=== PATIENT | female | born 1985 | race Caucasian/White ===

== ENCOUNTER 2018-03-05 10:28 | Emergency (ER) | payer OTHER ==
[2018-03-05 10:32] VITALS: BMI 25.9
[2018-03-05 10:33] VITALS: RESP 18; O2SAT 98
[2018-03-05 11:39] LABS: BASO # 0.04 K/mm3 (0.0-2.0); BASO % 0.5 % (0.0-3.0); EOS # 0.4 (0.0-0.7); EOS % 4.7 % (1.5-5.0); GRAN # 4.5 (1.4-6.5); GRAN % 60.3 % (50.0-68.0); HEMOGLOBIN 13.3 g/dL (12.0-16.0); LYMPH % 26.5 % (22.0-35.0); MEAN CELL VOLUME 84.8 fl (80.0-105.0); MEAN CORPUSCULAR HEMOGLOBIN 28.8 pg (25.0-35.0); MEAN CORPUSCULAR HGB CONC 33.9 g/dl (31.0-37.0); MEAN PLATELET VOLUME 9.9 fl (7.0-11.0); MONO # 0.6 (0.1-0.6); RBC 4.62 10^6/uL (3.5-6.1); RED CELL DISTRIBUTION WIDTH 12.7 % (11.5-14.5); WHITE BLOOD COUNT 7.5 10^3/ul (4.5-11.0)
[2018-03-05 11:43] LABS: URINE APPEARANCE CLEAR (CLEAR); URINE BILIRUBIN NEGATIVE (NEGATIVE); URINE BLOOD NEGATIVE (NEGATIVE); URINE COLOR YELLOW (YELLOW); URINE GLUCOSE (UA) NEGATIVE (NEGATIVE); URINE LEUKOCYTE ESTERASE NEGATIVE Leu/uL (NEGATIVE); URINE PROTEIN TRACE mg/dL (<30 mg/dL); URINE UROBILINOGEN 0.2 E.U./dL (<1 E.U./dL)
[2018-03-05 11:49] LABS: ALB/GLOB RATIO 1.2 (1.1-1.8); ALBUMIN 4.2 g/dL (3.0-4.8); CALCIUM 9.4 mg/dL (8.4-10.5); GFR AFRICAN-AMERICAN > 60; GFR NON-AFRICAN AMERICAN > 60
[2018-03-05 11:50] LABS: ALT/SGPT 19 U/L (7-56); AST/SGOT 23 U/L (14-36); BLOOD UREA NITROGEN 13 mg/dL (7-21)
[2018-03-05 12:19] LABS: URINE AMORPHOUS SEDIMENT FEW; URINE BACTERIA MANY (NEG); URINE RBC 0 - 2 /hpf (0-2); URINE WBC 0 - 2 /hpf (0-6)
--- NOTE | 2018-03-05 12:52 | ED PDOC ---
Arrival/HPI - General Chief Complaint: Upper Extremity Problem/Injury Time Seen by Provider: 03/05/18 10:32 Historian: Patient - History of Present Illness Narrative History of Present Illness (Text): 03/05/18 12:48 32 yr old female w/ hx of masectomy 2/2 breast CA currently on tamoxifen p/w R shoulder pain after lifting box 3d prior. Pt notes she lifted a heavy box while at work and then noted R sided shoulder pain. She notes he pain feels like a muscular strain. She denies any chest pain or sob. Pain does not go down her arm. She notes she has had this pain previously when she strained her muscle. She denies any popping of the joint and is able to move her arms without issues. She also notes abdominal pain, suprapubic, without radiation, without any dysuria, urgency or freq. LMP was beggining of this month, Feb 14, normal. She notes her pain feels like her menstrual cramps. No RLQ or LLQ pain. No N/V. No vaginal d/c or rashes. No hx of STDS. No fever, chills or night sweats No trauma No CP or SOB No headache, nausea or vomiting No back pain No other complaints Past Medical History - Provider Review Nursing Documentation Reviewed: Yes - Travel History Have you recently traveled outside [place] w/in the past 3 mons?: No - Infectious Disease Hx of Infectious Diseases: None - Hematological/Oncological Hx Cancer: Yes (breast ca - on tamoxifen) - Psychiatric Hx Substance Use: No - Surgical History Other/Comment: R mastectomy - Anesthesia Hx Anesthesia Reactions: No Hx Malignant Hyperthermia: No Family/Social History - Physician Review Nursing Documentation Reviewed: Yes Family/Social History: Unknown Family HX Smoking Status: Never Smoked Hx Alcohol Use: No Hx Substance Use: No Allergies/Home Meds Allergies/Adverse Reactions: Allergies No Known Allergies Allergy (Verified 03/05/18 10:32) Home Medications: Home Meds Medication Instructions Recorded Confirmed Tamoxifen Citrate [Tamoxifen 1 tab PO DAILY 03/05/18 03/05/18 Citrate] Review of Systems - Review of Systems Constitutional: Normal Eyes: Normal ENT: Normal Respiratory: Normal Cardiovascular: Normal Gastrointestinal: Abdominal Pain Genitourinary Female: Normal Musculoskeletal: Other (r shoulder pain) Skin: Normal Neurological: Normal Physical Exam Vital Signs Reviewed: Yes Vital Signs Temp Pulse Resp BP Pulse Ox 03/05/18 10:32 98.9 F 88 18 127/83 98 Temperature: Afebrile Blood Pressure: Normal Pulse: Regular Respiratory Rate: Normal Appearance: Positive for: Well-Appearing Pain Distress: None Mental Status: Positive for: Alert and Oriented X 3 - Systems Exam Head: Present: Atraumatic, Normocephalic Pupils: Present: PERRL Extroacular Muscles: Present: EOMI Conjunctiva: Present: Normal Mouth: Present: Moist Mucous Membranes Neck: Present: Normal Range of Motion Respiratory/Chest: Present: Clear to Auscultation, Good Air Exchange. No: Respiratory Distress, Accessory Muscle Use Cardiovascular: Present: Regular Rate and Rhythm, Normal S1, S2. No: Murmurs Abdomen: Present: Tenderness (suprapubic. ). No: Distention, Peritoneal Signs, Rebound, Guarding, McBurney's Point Tender, Rovsing's Sign Present, Hernias Back: Present: Normal Inspection Upper Extremity: Present: Normal Inspection, Normal ROM, NORMAL PULSES, Other ( R AC joint TTP. Non erythematous. No swelling. No warmth. ). No: Cyanosis, Edema Lower Extremity: Present: Normal Inspection. No: Edema Neurological: Present: GCS=15, CN II-XII Intact, Speech Normal Skin: Present: Warm, Dry, Normal Color. No: Rashes Psychiatric: Present: Alert, Oriented x 3, Normal Insight, Normal Concentration Medical Decision Making ED Course and Treatment: 03/05/18 12:53 32 yr old female w/ hx of masectomy 2/2 breast ca, currently on tamoxifren p/w R should pain s/p lifting box. Likely MSK given no ACS RF. No DIXON or SOB or tachy. Pain only occured after lifting object. Abd pain, suprapubic, feels like cramps, u/l appendicitis given x3d, non periumbilical, non rlq. will seek labs and TVUS. No other complaints 03/05/2018 13:27 Transvaginal Ultrasound IMPRESSION: Unremarkable pelvic ultrasound. Dictator: Grace Hanna MD 03/05/2018 13:36 Right Shoulder X-ray IMPRESSION: Normal examination. Dictator: Grace aHnna MD 03/05/18 13:42 labs, imaging unremarkable. Pain improved. N/V intact in all extremities. abdominal pain resolved, clear for d/c home. Pt notes she has tylenol at home. - Lab Interpretations Lab Results: 03/05/18 11:00 03/05/18 11:00 Lab Results 03/05/18 11:00: Sodium 141, Potassium 4.9, Chloride 107, Carbon Dioxide 24, Anion Gap 15, BUN 13, Creatinine 0.6 L, Est GFR ( Amer) > 60, Est GFR ( Non-Af Amer) > 60, Random Glucose 86, Calcium 9.4, Total Bilirubin 0.9, AST 23, ALT 19, Alkaline Phosphatase 59, Total Protein 7.7, Albumin 4.2, Globulin 3.4, Albumin/Globulin Ratio 1.2 03/05/18 11:00: Urine Color Yellow, Urine Appearance Clear, Urine pH 7.0, Ur Specific [place] 1.015, Urine Protein Trace H, Urine Glucose (UA) Negative, Urine Ketones Negative, Urine Blood Negative, Urine Nitrate Negative, Urine Bilirubin Negative, Urine Urobilinogen 0.2, Ur Leukocyte Esterase Negative, Urine RBC 0 - 2, Urine WBC 0 - 2, Ur Epithelial Cells 6 - 8, Amorphous Sediment Few, Urine Bacteria Many, Urine Other Uyeast 03/05/18 11:00: WBC 7.5, RBC 4.62, Hgb 13.3, Hct 39.2, MCV 84.8, MCH 28.8, MCHC 33.9, RDW 12.7, Plt Count 242, MPV 9.9, Gran % 60.3, Lymph % (Auto) 26.5, [place] % (Auto) 8.0 H, Eos % (Auto) 4.7, Baso % (Auto) 0.5, Gran # 4.50, Lymph # (Auto ) 2.0, Terry # (Auto) 0.6, Eos # (Auto) 0.4, Baso # (Auto) 0.04 - RAD Interpretation Radiology Orders: 03/05/18 11:24 SHOULDER RIGHT [RAD] Stat TRANSVAGINAL [US] Stat - Medication Orders Current Medication Orders: Discontinued Medications Acetaminophen (Tylenol 325mg Tab) 650 mg PO STAT STA Stop: 03/05/18 11:25 Last Admin: 03/05/18 11:45 Dose: 650 mg MAR Pain/Vitals Document 03/05/18 11:45 [email or web address] (Rec: 03/05/18 11:45 [email or web address] [id number]) Pain Reassessment Is This A Pain ReAssessment? No Sleep Is patient sleeping during reassessment? No Presence of Pain Presence of Pain Yes Pain Scale Used Pain Scale Used Numeric Location Left, Right or Bilateral Right Pain Location Body Site Arm Description Constant Intensity 5 Scale Used Numeric Pain Behavior Facial Grimacing Aggravating Factors Changing Position Alleviating Factors Medication Disposition/Present on Arrival - Present on Arrival Any Indicators Present on Arrival: No History of DVT/PE: No History of Uncontrolled Diabetes: No Urinary Catheter: No History of Decub. Ulcer: No History Surgical Site Infection Following: None - Disposition Have Diagnosis and Disposition been Completed?: Yes Diagnosis: Shoulder pain, right, Abdominal pain Disposition: HOME/ ROUTINE Disposition Time: 13:30 Condition: GOOD Discharge Instructions (ExitCare): Contusion (DC), Shoulder Pain (DC), Stomach Ache and Stomach Upset Print Language: [place] Additional Instructions: Take tylenol as prescribed on the bottle for the shoulder pain DURGA SILVA, thank you for letting us take care of you today. Your provider was Remington Byers and you were treated for SHOULDER PAIN. The emergency medical care you received today was directed at your acute symptoms. If you were prescribed any medication, please fill it and take as directed. It may take several days for your symptoms to resolve. Return to the Emergency Department if your symptoms worsen, do not improve, or if you have any other problems. Please contact your doctor or call one of the physicians/clinics you have been referred to that are listed on the Patient Visit Information form that is included in your discharge packet. Bring any paperwork you were given at discharge with you along with any medications you are taking to your follow up visit. Our treatment cannot replace ongoing medical care by a primary care provider outside of the emergency department. Thank you for allowing the [facility] team to be part of your care today. If you had an X-Ray or CT scan: A Radiologist will review the ED reading if any change in treatment is needed we will contact you. If you had a blood, urine, or wound culture: It will take several days for the results, if any change in treatment is needed we will contact you. If you had an STI test: It will take 48 hours for the results. Please call after 1 week if you have not heard back. Referrals: Marquita Larkin MD [Medical Doctor] - Follow up with primary Forms: [email or web address] (Yi)
--- NOTE | 2018-03-05 13:30 | US ---
Date of service: 03/05/2018 HISTORY: Suprapubic pain COMPARISON: None available. TECHNIQUE: Transvaginal pelvic ultrasound was performed. FINDINGS: UTERUS: Measures 8.1 x 4.8 x 6.3 cm. Anteverted, normal in size and appearance. No fibroid or other mass lesion seen. ENDOMETRIUM: Measures 10 mm in diameter. Normal in appearance. CERVIX: No cervical abnormality identified. RIGHT OVARY: Measures 3.0 x 3.6 x 2.0 cm. No solid mass. Normal flow. There is a 1.4 x 1.3 cm complicated cyst. LEFT OVARY: Measures 3.8 x 1.8 x 3.4 cm. No solid mass. Normal flow. FREE FLUID: No significant free fluid noted. OTHER FINDINGS: None. IMPRESSION: Unremarkable pelvic ultrasound.
--- NOTE | 2018-03-05 13:39 | RAD ---
Date of service: 03/05/2018 PROCEDURE: Radiographs of the Right Shoulder HISTORY: R shoulder pain COMPARISON: No prior. FINDINGS: BONES: Bone alignment and mineralization are normal. There is no acute displaced fracture or bone destruction. JOINTS: Normal. Glenohumeral and acromioclavicular joints preserved. No osteoarthritis. SOFT TISSUES: Normal. OTHER FINDINGS: None. IMPRESSION: Normal examination.
[2018-03-05 13:59] VITALS: BP 122/80; PULSE 87; TEMP 98
== END 2018-03-05 14:04 | disposition home or self-care (01) ==
LOC: ED 10:28
DX: M25.511 Pain in right shoulder (principal); R10.9 Unspecified abdominal pain; Z85.3 Personal history of malignant neoplasm of breast

== ENCOUNTER 2018-03-18 14:46 | Emergency (ER) | payer OTHER ==
[2018-03-18 14:47] VITALS: BMI 25.9
[2018-03-18] MEDS ORDERED: Sodium Chloride 0.9% 1,000 ML IV STA (15:29)
--- NOTE | 2018-03-18 15:33 | ED PDOC ---
Arrival/HPI - General Chief Complaint: Flu-like Symptoms Time Seen by Provider: 03/18/18 15:17 Historian: Patient - History of Present Illness Narrative History of Present Illness (Text): 03/18/18 15:29 A 32 year old female, with no significant past medical history, presents to the emergency department complaining of fever starting yesterday. Patient reports also experiencing body aches and muscle pain, mainly in the lower extremities bilaterally. Patient denies cough, shortness of breath, chest pain, nausea, vomiting, diarrhea, abdominal pain, rash, any urinary symptoms, or any other complaints at this time. Also, patient denies any recent sick contacts. Admits to traveling in January to [facility], however stated that upon returning to the [facility] did not develop any symptoms at the time. No PMD Past Medical History - Provider Review Nursing Documentation Reviewed: Yes - Infectious Disease Hx of Infectious Diseases: None - Cardiac Hx Cardiac Disorders: No - Pulmonary Hx Respiratory Disorders: No - Neurological Hx Neurological Disorder: No - HEENT Hx HEENT Disorder: No - Renal Hx Renal Disorder: No - Endocrine/Metabolic Hx Endocrine Disorders: No - Hematological/Oncological Hx Blood Disorders: Yes Hx Cancer: Yes (breast ca - on tamoxifen) - Integumentary Hx Dermatological Disorder: No - Musculoskeletal/Rheumatological Hx Musculoskeletal Disorders: No - Gastrointestinal Hx Gastrointestinal Disorders: No - Genitourinary/Gynecological Hx Genitourinary Disorders: No - Psychiatric Hx Psychophysiologic Disorder: No Hx Substance Use: No - Surgical History Hx Mastectomy: Yes (right breast 2010) - Anesthesia Hx Anesthesia: Yes Hx Anesthesia Reactions: No Hx Malignant Hyperthermia: No Family/Social History - Physician Review Nursing Documentation Reviewed: Yes Family/Social History: No Known Family HX Smoking Status: Never Smoked Hx Alcohol Use: No Hx Substance Use: No Allergies/Home Meds Allergies/Adverse Reactions: Allergies No Known Allergies Allergy (Verified 03/05/18 10:32) Home Medications: Home Meds Medication Instructions Recorded Confirmed Tamoxifen Citrate [Tamoxifen 1 tab PO DAILY 03/05/18 03/05/18 Citrate] Review of Systems - Physician Review All systems were reviewed & negative as marked: Yes - Review of Systems Constitutional: Fatigue, Fevers ENT: absent: Sore Throat, Rhinorrhea, Sinus Congestion Respiratory: absent: SOB, Cough Cardiovascular: absent: Chest Pain, Palpitations, Edema Gastrointestinal: absent: Abdominal Pain, Diarrhea, Nausea, Vomiting Genitourinary Female: absent: Dysuria, Frequency, Hematuria Musculoskeletal: Arthralgias, Myalgias. absent: Back Pain, Neck Pain, Joint Swelling Skin: absent: Rash, Pruritis, Skin Lesions Neurological: absent: Headache, Dizziness Physical Exam Vital Signs Temp Pulse Resp BP Pulse Ox 03/18/18 18:36 99.0 F 108 H 18 115/73 100 03/18/18 17:03 101.1 F H 110 H 18 118/71 100 03/18/18 15:02 101.8 F H 117 H 18 104/70 98 Temperature: Febrile Blood Pressure: Normal Pulse: Tachycardic Respiratory Rate: Normal Appearance: Positive for: Non-Toxic, Comfortable Pain Distress: Mild Mental Status: Positive for: Alert and Oriented X 3 - Systems Exam Head: Present: Atraumatic, Normocephalic Pupils: Present: PERRL Extroacular Muscles: Present: EOMI Conjunctiva: Present: Normal. No: Injected, Icteric Ears: Present: Normal, NORMAL TM, Normal Canal. No: Erythema, TM Bulging, Fluid Mouth: Present: Dry Pharnyx: Present: Normal. No: ERYTHEMA, EXUDATE, TONSILS ENLARGED, Uvular Deviation, Muffled/Hoarse Voice, Strider Neck: Present: Normal Range of Motion. No: Meningeal Signs, MIDLINE TENDERNESS , Lymphadenopathy Respiratory/Chest: Present: Clear to Auscultation, Good Air Exchange. No: Respiratory Distress, Accessory Muscle Use, Wheezes, Rales, Rhonchi Cardiovascular: Present: Regular Rate and Rhythm, Normal S1, S2. No: Murmurs Abdomen: No: Tenderness, Distention, Peritoneal Signs, Rebound, Guarding Back: Present: Normal Inspection, CVA Tenderness. No: Midline Tenderness Upper Extremity: Present: Normal Inspection, Normal ROM, NORMAL PULSES, Neurovascularly Intact, Capillary Refill < 2s. No: Cyanosis, Edema, Tenderness , Swelling, Erythema, Temperature Abnormalties Lower Extremity: Present: Normal Inspection, NORMAL PULSES, Normal ROM, Neurovascularly Intact, Capillary Refill < 2 s. No: Edema, Tenderness, Swelling , Erythema, Temperature Abnormalties Neurological: Present: GCS=15, CN II-XII Intact, Speech Normal, Motor Func Grossly Intact, Normal Sensory Function Skin: Present: Warm, Dry, Normal Color. No: Rashes Psychiatric: Present: Alert, Oriented x 3, Normal Insight, Normal Concentration Medical Decision Making ED Course and Treatment: 03/18/18 15:32 Plan : - IV - NS bolus IV - tylenol po - toradol IV - CXR - Ua - Ucx - Blood cx Labs : wbc 17, UA +evidence of UTI, CMP wnl otherwise, lactate nl. CXR : NAD, as read by SHANA Rocephin 1 g IV ordered. On reevaluation, patient reports improvement of symptoms, denies any headache, CP, SOB, abdominal pain or nausea. On exam, patient remains awake alert and oriented 3 in no acute distress. Abdomen soft and nontender, repeat neuro exam shows no focal findings. Based on history, exam and diagnostic results plan will be for further inpatient observation. Patient refuses further care, evaluation or treatment in the hospital. Patient informed of the reasons for the following and planned treatment, which patient understands, however still refuses. Patient informed of the risk and benefits of treatment. Informed that the risk could include worsening of current conditions, undiagnosed conditions, disability or even . Patient understands the following risk and the benefits of treatment. Patient has the capacity to make decisions and still refuses treatment by RN, SHANA and ER MD. Patient encouraged to return to the ER at any time and to follow up with pmd. - Lab Interpretations Lab Results: 03/18/18 16:00 03/18/18 16:00 Lab Results 03/18/18 16:00: PT 15.0 H, INR 1.31, APTT 26.5 03/18/18 16:00: pO2 30, VBG pH 7.40, VBG pCO2 46.0, VBG HCO3 28.5 H, VBG Total CO2 29.9 H, VBG O2 Sat (Calc) 60.3, VBG Base Excess 3.0 H, VBG Potassium 3.5 L, Sodium 136.0, Chloride 102.0, Glucose 93, Lactate 0.8, FiO2 21.0, Venous Blood Potassium 3.5 L 03/18/18 16:00: Sodium 140, Chloride 102, Potassium 3.5 L, Carbon Dioxide 25, Anion Gap 17, BUN 11, Creatinine 0.6 L, Est GFR ( Amer) > 60, Est GFR ( Non-Af Amer) > 60, Random Glucose 95, Calcium 9.4, Total Bilirubin 1.9 H, AST 17 , ALT 17, Alkaline Phosphatase 75, Total Creatine Kinase 54, Total Protein 7.9, Albumin 4.3, Globulin 3.5, Albumin/Globulin Ratio 1.2 03/18/18 16:00: WBC 17.7 H D, RBC 4.39, Hgb 12.7, Hct 36.7, MCV 83.6, MCH 28.9, MCHC 34.6, RDW 12.4, Plt Count 193, MPV 10.0, Gran % 83.9 H, Lymph % (Auto) 7.2 L, [place] % (Auto) 8.3 H, Eos % (Auto) 0.4 L, Baso % (Auto) 0.2, Gran # 14.88 H, Lymph # (Auto) 1.3, [place] # (Auto) 1.5 H, Eos # (Auto) 0.1, Baso # (Auto) 0.03 03/18/18 15:36: Urine Color Dark yellow, Urine Appearance Sl cloudy, Urine pH 6.0, Ur Specific [place] 1.025, Urine Protein Trace H, Urine Glucose (UA) Negative, Urine Ketones 15 H, Urine Blood Moderate H, Urine Nitrate Positive H, Urine Bilirubin Negative, Urine Urobilinogen 1.0 H, Ur Leukocyte Esterase Negative, Urine RBC 0 - 2, Urine WBC 1 - 3, Ur Epithelial Cells 10 - 12, Urine Bacteria Large - RAD Interpretation Radiology Orders: 03/18/18 15:29 CHEST TWO VIEWS (PA/LAT) [RAD] Stat - Medication Orders Current Medication Orders: Discontinued Medications Acetaminophen (Tylenol 325mg Tab) 975 mg PO STAT STA Stop: 03/18/18 15:18 Last Admin: 03/18/18 16:15 Dose: 975 mg Sodium Chloride (Sodium Chloride 0.9%) 1,000 mls @ 1,000 mls/hr IV .Q1H STA Stop: 03/18/18 16:28 Last Admin: 03/18/18 16:14 Dose: 1,000 mls/hr eMAR Start Stop Document 03/18/18 16:14 OCS (Rec: 03/18/18 16:15 OCS [id number]) Intravenous Solution Start Date 03/18/18 Start Time 16:14 End Date 03/18/18 End time 17:14 Total Infusion Time 60 Ceftriaxone Sodium (Rocephin 1 Gram Ivpb) 1 gm in 100 mls @ 200 mls/hr IVPB STAT STA PRN Reason: Protocol Stop: 03/18/18 20:10 Ketorolac Tromethamine (Toradol) 15 mg IVP STAT STA Stop: 03/18/18 15:30 Last Admin: 03/18/18 16:15 Dose: 15 mg MAR Pain Assessment Document 03/18/18 16:15 OCS (Rec: 03/18/18 16:16 OCS [id number]) Pain Reassessment Is this a pain reassessment? No Sleep Is patient sleeping during reassessment? No Presence of Pain Presence of Pain Yes Pain Scale Used Pain Scale Used Numeric Location Pain Location Body Site Generalized Description Description Constant Intensity of Pain at present 9 Pain Behavior Moaning Irritability Facial Grimacing Aggravating Factors ADL's IVP Administration Document 03/18/18 16:15 OCS (Rec: 03/18/18 16:16 OCS [id number]) Charges for Administration # of IVP Administrations 1 Ketorolac Tromethamine (Toradol) 15 mg IVP STAT STA Stop: 03/18/18 17:53 Last Admin: 03/18/18 18:06 Dose: 15 mg MAR Pain Assessment Document 03/18/18 18:06 OCS (Rec: 03/18/18 18:08 OCS [id number]) Pain Reassessment Is this a pain reassessment? No Sleep Is patient sleeping during reassessment? No Pain Scale Used Pain Scale Used Numeric Location Pain Location Body Site Generalized Description Description Constant Aggravating Factors ADL's IVP Administration Document 03/18/18 18:06 OCS (Rec: 03/18/18 18:08 OCS [id number]) Charges for Administration # of IVP Administrations 1 Potassium Chloride (Potassium Chloride Oral Soln) 20 meq PO STAT STA Stop: 03/18/18 16:57 Last Admin: 03/18/18 17:19 Dose: 20 meq - PA / INFORMATION BROKER / Resident Statement MD/DO has reviewed & agrees with the documentation as recorded. - Scribe Statement The provider has reviewed the documentation as recorded by the Cathieibrenata [place] Provider Scribe Provider Scribe Attestation: All medical record entries made by the Scribe were at my direction and personally dictated by me. I have reviewed the chart and agree that the record accurately reflects my personal performance of the history, physical exam, medical decision making, and the department course for this patient. I have also personally directed, reviewed, and agree with the discharge instructions and disposition. Disposition/Present on Arrival - Present on Arrival Any Indicators Present on Arrival: No History of DVT/PE: No History of Uncontrolled Diabetes: No Urinary Catheter: No History of Decub. Ulcer: No History Surgical Site Infection Following: None - Disposition Have Diagnosis and Disposition been Completed?: Yes Diagnosis: Fever, Pyelonephritis Disposition: AGAINST MEDICAL ADVICE Disposition Time: 20:15 Patient Plan: Other (Patient wishes to leave AMA, is refusing further observation in the hospital) Patient Problems: Current Active Problems Problem Status Onset Fever Acute Pyelonephritis Acute Condition: UNKNOWN Discharge Instructions (ExitCare): Kidney Infection, Leaving Against Medical Advice Print Language: ROMANIAN Additional Instructions: Thank you for letting us take care of you today. Your choosing to leave AGAINST MEDICAL ADVICE. You were treated for fever, pyelonephritis. The emergency medical care you received today was directed at your acute symptoms. If you were prescribed any medication, please fill it and take as directed. It may take several days for your symptoms to resolve. Return to the Emergency Department if your symptoms worsen, do not improve, or if you have any other problems. Please contact the clinic in 2 days for re-evaluation and follow up. Bring any paperwork you were given at discharge with you along with any medications you are taking to your follow up visit. Our treatment cannot replace ongoing medical care by a primary care provider (PCP) outside of the emergency department. Thank you for allowing the [facility] team to be part of your care today. If you had an X-Ray : A Radiologist will review the ED reading if any change in treatment is needed we will contact you. If you had a blood, urine culture: It will take several days for the results, if any change in treatment is needed we will contact you. Prescriptions: Cefpodoxime [Vantin] 200 mg PO BID #20 tab Ibuprofen [Motrin Tab] 600 mg PO QID PRN #20 tab PRN Reason: Fever >100.4 F Referrals: [facility] at [facility] [place] [Outside] - Follow up with primary Forms: [employer] (Paraguayan), WORK NOTE
[2018-03-18 16:34] LABS: BASO # 0.03 K/mm3 (0.0-2.0); BASO % 0.2 % (0.0-3.0); EOS # 0.1 (0.0-0.7); EOS % 0.4 % (1.5-5.0); GRAN # 14.88 (1.4-6.5); GRAN % 83.9 % (50.0-68.0); HEMOGLOBIN 12.7 g/dL (12.0-16.0); LYMPH # 1.3 (1.2-3.4); LYMPH % 7.2 % (22.0-35.0); MEAN CELL VOLUME 83.6 fl (80.0-105.0); MEAN CORPUSCULAR HEMOGLOBIN 28.9 pg (25.0-35.0); MEAN CORPUSCULAR HGB CONC 34.6 g/dl (31.0-37.0); MONO # 1.5 (0.1-0.6); MONO % 8.3 % (1.0-6.0); RBC 4.39 10^6/uL (3.5-6.1); RED CELL DISTRIBUTION WIDTH 12.4 % (11.5-14.5); WHITE BLOOD COUNT 17.7 10^3/ul (4.5-11.0)
[2018-03-18 16:40] LABS: VENOUS BLOOD GAS PO2 30 mm/Hg (30-55)
[2018-03-18 16:42] LABS: INR 1.31; PARTIAL THROMBOPLASTIN TIME 26.5 Seconds (25.1-36.5)
[2018-03-18 16:49] LABS: ALB/GLOB RATIO 1.2 (1.1-1.8); ALBUMIN 4.3 g/dL (3.0-4.8); ALT/SGPT 17 U/L (7-56); AST/SGOT 17 U/L (14-36); BLOOD UREA NITROGEN 11 mg/dL (7-21); CALCIUM 9.4 mg/dL (8.4-10.5); GFR NON-AFRICAN AMERICAN > 60
[2018-03-18] MEDS ORDERED: Potassium Chloride 20 mEq/15 ml LIQ UD PO STA (16:56)
--- NOTE | 2018-03-18 17:53 | RAD ---
Date of service: 03/18/2018 HISTORY: fever COMPARISON: No prior. TECHNIQUE: Chest PA and lateral FINDINGS: LUNGS: No active pulmonary disease. PLEURA: No significant pleural effusion identified. No pneumothorax apparent. CARDIOVASCULAR: Normal. OSSEOUS STRUCTURES: No significant abnormalities. VISUALIZED UPPER ABDOMEN: Normal. OTHER FINDINGS: None. IMPRESSION: No radiographic evidence of pneumonia.
[2018-03-18 18:36] VITALS: TEMP 99
[2018-03-18 18:59] LABS: URINE BILIRUBIN NEGATIVE (NEGATIVE); URINE BLOOD MODERATE (NEGATIVE); URINE GLUCOSE (UA) NEGATIVE (NEGATIVE); URINE LEUKOCYTE ESTERASE NEGATIVE Leu/uL (NEGATIVE); URINE PROTEIN TRACE mg/dL (<30 mg/dL)
[2018-03-18 19:00] LABS: URINE APPEARANCE SL CLOUDY (CLEAR); URINE COLOR DARK YELLOW (YELLOW)
[2018-03-18 19:05] LABS: URINE BACTERIA LARGE (NEG); URINE RBC 0 - 2 /hpf (0-2)
[2018-03-18] MEDS ORDERED: cefTRIAXone 1 gm 1 GM/100 ML BAG IVPB STA (19:41)
[2018-03-18 20:47] VITALS: BP 120/69; PULSE 95; RESP 19; O2SAT 99
== END 2018-03-18 20:44 | disposition left against medical advice (07) ==
LOC: ED 14:46
DX: N12 Tubulo-interstitial nephritis, not specified as acute or chronic (principal); R50.9 Fever, unspecified; Z85.3 Personal history of malignant neoplasm of breast
CPT/HCPCS: 71046; 80053; 81001; 82550; 82803; 85025; 85610; 85730; 87040; 87086; 96361; 96365; 96375; 96376; 99284; J0696; J1885; J7030

== ENCOUNTER 2018-07-16 13:48 | Inpatient (IN) | payer OTHER ==
[2018-07-16 13:50] VITALS: BMI 25.0
[2018-07-16] MEDS ORDERED: Sodium Chloride 0.9% 1,000 ML IV STA (14:21)
[2018-07-16 14:52] LABS: URINE BILIRUBIN NEGATIVE (NEGATIVE); URINE BLOOD MODERATE (NEGATIVE); URINE GLUCOSE (UA) NEGATIVE (NEGATIVE); URINE LEUKOCYTE ESTERASE SMALL Leu/uL (NEGATIVE); URINE PROTEIN 30 mg/dL (<30 mg/dL); URINE UROBILINOGEN 0.2 E.U./dL (<1 E.U./dL)
[2018-07-16 14:55] LABS: URINE APPEARANCE CLOUDY (CLEAR); URINE COLOR YELLOW (YELLOW)
[2018-07-16 14:58] LABS: URINE BACTERIA MANY /hpf
[2018-07-16 15:30] LABS: BASO # 0.03 K/mm3 (0.0-2.0); BASO % 0.2 % (0.0-3.0); EOS # 0.1 (0.0-0.7); EOS % 0.4 % (1.5-5.0); GRAN # 10.59 (1.4-6.5); GRAN % 75.3 % (50.0-68.0); LYMPH # 1.8 (1.2-3.4); MEAN CELL VOLUME 84.8 fl (80.0-105.0); MEAN CORPUSCULAR HGB CONC 34.2 g/dl (31.0-37.0); MEAN PLATELET VOLUME 9.8 fl (7.0-11.0); MONO # 1.6 (0.1-0.6); MONO % 11.1 % (1.0-6.0); RBC 4.48 10^6/uL (3.5-6.1); RED CELL DISTRIBUTION WIDTH 12.7 % (11.5-14.5); WHITE BLOOD COUNT 14.1 10^3/uL (4.5-11.0)
[2018-07-16 15:49] LABS: ALB/GLOB RATIO 1.2 (1.1-1.8); ALBUMIN 4.5 g/dL (3.0-4.8); ALT/SGPT 13 U/L (7-56); AST/SGOT 18 U/L (14-36); BLOOD UREA NITROGEN 7 mg/dL (7-21); CALCIUM 9.4 mg/dL (8.4-10.5); GFR NON-AFRICAN AMERICAN > 60
[2018-07-16 15:52] LABS: INR 1.26; PARTIAL THROMBOPLASTIN TIME 23.7 Seconds (25.1-36.5); PROTHROMBIN TIME 14.4 SECONDS (9.4-12.5)
--- NOTE | 2018-07-16 16:20 | US ---
Date of service: 07/16/2018 PROCEDURE: OB Pelvic Ultrasound HISTORY: abdominal pain LMP: 06/16/2018 COMPARISON: None available. FINDINGS: UTERUS: Uterus measures 9.0 x 6.2 x 6.6 cm. Normal in size and appearance. 5 mm gestational sac seen within the endometrium with yolk sac also identified. Dates are out of range. CERVIX: Measures 3.5 cm. Long and closed. No cervical abnormality seen. RIGHT OVARY: Measures 3.1 x 2.6 x 3.5 cm. Dominant follicle measuring 1.7 x 1.6 x 1.7 cm. No mass lesion. Normal flow. LEFT OVARY: Measures 2.6 x 1.5 x 2.7 cm. No solid mass. Normal flow. FREE FLUID: None. OTHER FINDINGS: None. IMPRESSION: 5 mm gestational sac within the uterus with yolk sac identified. Measurements are currently out of range. Findings may represent early normal/abnormal . Close clinical follow-up with serial pelvic sonography and serum beta HCG levels is recommended.
--- NOTE | 2018-07-16 16:25 | US ---
Date of service: 07/16/2018 PROCEDURE: Ultrasound of the Kidneys HISTORY: left flank pain COMPARISON: None available. TECHNIQUE: Sonogram of the kidneys. FINDINGS: RIGHT KIDNEY: Measures: 12.8 x 6.1 x 6.3 cm. Normal in size, contour and echogenicity. No stone, solid mass lesion or hydronephrosis visualized. LEFT KIDNEY: Measures: 11.6 x 5.7 x 7.0 cm. Normal in size, contour and echogenicity. No stone, solid mass lesion or hydronephrosis visualized. OTHER FINDINGS: None. IMPRESSION: Unremarkable renal sonogram.
[2018-07-16] MEDS ORDERED: cefTRIAXone 1 gm 1 GM/100 ML BAG IVPB STA (16:47)
--- NOTE | 2018-07-16 16:55 | ED PDOC ---
Arrival/HPI - General Chief Complaint: Abdominal Pain Time Seen by Provider: 07/16/18 13:56 Historian: Patient - History of Present Illness Narrative History of Present Illness (Text): 07/16/18 16:49 32yo female with no past medical history who present with complaint of abdominal pain, left flank pain, dysuria, nausea, fever, bodyache, headache x 2days. States she did not take any medication for her symptoms. Denies hematuria , vaginal bleeding, vomiting, diarrhea, back pain, sick contact, travel, any other complaint. Past Medical History - Provider Review Nursing Documentation Reviewed: Yes - Infectious Disease Hx of Infectious Diseases: None - Cardiac Hx Cardiac Disorders: No - Pulmonary Hx Respiratory Disorders: No - Neurological Hx Neurological Disorder: No - HEENT Hx HEENT Disorder: No - Renal Hx Renal Disorder: No - Endocrine/Metabolic Hx Endocrine Disorders: No - Hematological/Oncological Hx Blood Disorders: Yes Hx Cancer: Yes (breast ca - on tamoxifen) - Integumentary Hx Dermatological Disorder: No - Musculoskeletal/Rheumatological Hx Musculoskeletal Disorders: No - Gastrointestinal Hx Gastrointestinal Disorders: No - Genitourinary/Gynecological Hx Genitourinary Disorders: No - Psychiatric Hx Psychophysiologic Disorder: No Hx Substance Use: No - Surgical History Hx Mastectomy: Yes (right breast 2010) - Anesthesia Hx Anesthesia: Yes Hx Anesthesia Reactions: No Hx Malignant Hyperthermia: No Family/Social History - Physician Review Nursing Documentation Reviewed: Yes Family/Social History: Unknown Family HX Smoking Status: Never Smoked Hx Alcohol Use: No Hx Substance Use: No Allergies/Home Meds Allergies/Adverse Reactions: Allergies No Known Allergies Allergy (Verified 07/16/18 17:42) Home Medications: Home Meds Medication Instructions Recorded Confirmed Tamoxifen Citrate 1 tab PO DAILY 03/05/18 03/05/18 Review of Systems - Physician Review All systems were reviewed & negative as marked: Yes - Review of Systems Constitutional: Normal Eyes: Normal ENT: Normal Respiratory: Normal Cardiovascular: Normal Gastrointestinal: Abdominal Pain, Nausea. absent: Constipation, Diarrhea, Vomiting, Hematochezia, Hematemesis Genitourinary Female: Dysuria. absent: Frequency, Hematuria Musculoskeletal: Normal Skin: Normal Neurological: Normal Endocrine: Normal Hemo/Lymphatic: Normal Psychiatric: Normal Physical Exam Vital Signs Reviewed: Yes Vital Signs Temp Pulse Resp BP Pulse Ox 07/16/18 13:50 102.4 F H 134 H 18 115/77 98 Temperature: Febrile Blood Pressure: Normal Pulse: Tachycardic Respiratory Rate: Normal Appearance: Positive for: Well-Appearing, Non-Toxic, Comfortable Pain Distress: None Mental Status: Positive for: Alert and Oriented X 3 - Systems Exam Head: Present: Atraumatic, Normocephalic Pupils: Present: PERRL Extroacular Muscles: Present: EOMI Conjunctiva: Present: Normal Mouth: Present: Moist Mucous Membranes Neck: Present: Normal Range of Motion Respiratory/Chest: Present: Clear to Auscultation, Good Air Exchange. No: R espiratory Distress, Accessory Muscle Use Cardiovascular: Present: Regular Rate and Rhythm, Normal S1, S2. No: Murmurs Abdomen: Present: Tenderness (Left flank and pelvic tenderness), Normal Bowel Sounds, Guarding (Voluntary), Other (Soft). No: Distention, Peritoneal Signs, Rebound, McBurney's Point Tender, Rovsing's Sign Present Back: Present: Normal Inspection Upper Extremity: Present: Normal Inspection. No: Cyanosis, Edema Lower Extremity: Present: Normal Inspection. No: Edema Neurological: Present: GCS=15, CN II-XII Intact, Speech Normal Skin: Present: Warm, Dry, Normal Color. No: Rashes Psychiatric: Present: Alert, Oriented x 3, Normal Insight, Normal Concentration Medical Decision Making ED Course and Treatment: 07/16/18 18:59 32yo female present with stated history. She was afebrile and tachy on arrival. U preg was positive in Emergency department. She reports LMP on 06/17/2018 Labs Transvaginal US Tylenol, 1L NS Labs was reviewed and leukocytosis was noted. PT have UTI. She had flank pain and febrile. She is also . She will be admitted for IV abx Beta quant Transvaginal US IMPRESSION: 5 mm gestational sac within the uterus with yolk sac identified. Measurements are currently out of range. Findings may represent early normal/abnormal . Close clinical follow-up with serial pelvic sonography and serum beta HCG levels is recommended. Case was DW Dr. Pagan who accepted pt for admission. - Lab Interpretations Lab Results: 07/16/18 15:24 07/16/18 15:24 Lab Results 07/16/18 15:24: Beta HCG, Quant 3143.70 H 07/16/18 15:24: Sodium 135, Potassium 3.4 L, Chloride 103, Carbon Dioxide 22, Anion Gap 14, BUN 7, Creatinine 0.6 L, Est GFR ( Amer) > 60, Est GFR (Non-Af Amer) > 60, Random Glucose 85, Calcium 9.4, Total Bilirubin 1.2, AST 18, ALT 13, Alkaline Phosphatase 92, Total Protein 8.3, Albumin 4.5, Globulin 3.8, Albumin/Globulin Ratio 1.2 07/16/18 15:24: PT 14.4 H, INR 1.26, APTT 23.7 L 07/16/18 15:24: WBC 14.1 H, RBC 4.48, Hgb 13.0, Hct 38.0, MCV 84.8, MCH 29.0, MCHC 34.2, RDW 12.7, Plt Count 230, MPV 9.8, Gran % 75.3 H, Lymph % (Auto) 13.0 L, [place] % (Auto) 11.1 H, Eos % (Auto) 0.4 L, Baso % (Auto) 0.2, Gran # 10.59 H, Lymph # (Auto) 1.8, [place] # (Auto) 1.6 H, Eos # (Auto) 0.1, Baso # (Auto) 0.03 07/16/18 14:47: Urine Color Yellow, Urine Appearance Cloudy, Urine pH 6.0, Ur Specific [place] 1.025, Urine Protein 30 H, Urine Glucose (UA) Negative, Urine Ketones >=80, Urine Blood Moderate H, Urine Nitrate Positive H, Urine Bilirubin Negative, Urine Urobilinogen 0.2, Ur Leukocyte Esterase Small H, Urine RBC 1 - 3 H, Urine WBC 10 - 15 H, Ur Epithelial Cells 3 - 4, Urine Bacteria Many 07/16/18 14:45: Influenza Typ A,B (EIA) Negative for flu a/b - RAD Interpretation Radiology Orders: 07/16/18 15:38 OB TRANSVAGINAL [US] Stat 07/16/18 15:46 RENAL [US] Stat - Medication Orders Current Medication Orders: Discontinued Medications Acetaminophen (Tylenol 325mg Tab) 650 mg PO STAT STA Stop: 07/16/18 14:22 Sodium Chloride (Sodium Chloride 0.9%) 1,000 mls @ 999 mls/hr IV .Q1H1M STA Stop: 07/16/18 15:21 Last Admin: 07/16/18 14:56 Dose: 999 mls/hr eMAR Start Stop Document 07/16/18 14:56 GMI (Rec: 07/16/18 14:56 GMI [id number]) Intravenous Solution Start Date 07/16/18 Start Time 14:56 End Date 07/16/18 End time 16:00 Total Infusion Time 64 Disposition/Present on Arrival - Present on Arrival Any Indicators Present on Arrival: No History of DVT/PE: No History of Uncontrolled Diabetes: No Urinary Catheter: No History of Decub. Ulcer: No History Surgical Site Infection Following: None - Disposition Have Diagnosis and Disposition been Completed?: Yes Diagnosis: Pyelonephritis, Disposition: HOSPITALIZED Disposition Time: 16:50 Patient Plan: Admission Patient Problems: Current Active Problems Problem Status Onset Pyelonephritis Acute Condition: STABLE
[2018-07-16] MEDS ORDERED: Sodium Chloride 0.9% 1,000 ML IV SCH (17:30)
[2018-07-16] MEDS ORDERED: Potassium Chloride 40 mEq/30 ml LIQ UD PO STA (17:32)
--- NOTE | 2018-07-16 17:37 | CP.PCM.HP ---
<Joseph Jamison - Last Filed: 07/16/18 17:44> History of Present Illness - History of Present Illness History of Present Illness: Medicine History and Physical for Hospitalist Service, Dr. Hellen Jamison, DO PGY-1 This is a 32 y o female with PMHx breast ca s/p mastectomy of R breast, chemo and XRT, who presents to the ED c/o L-sided flank pain, burning with urination, and suprapubic pain x 2 days. States she started having these symptoms along with associated fever/chills and generalized body aches. Reports she last had intercourse 2 days prior, denies post-coital bleeding or vulvodynia post- intercourse. Currently denies vaginal bleeding or discharge. Reports increased frequency with urination. States she has had UTIs in the past but not within the past year. Denies hx of STDs. Reports LMP was 06/16/18. Denies chest pain, sob, n/v/d/c, or other symptoms. PMhx: breast cancer s/p mastectomy, XRT and chemo (in the [place]; pt states she follow-up with doctors at [facility] in [place]) PSurgHx: Mastectomy of R breast 7 y ago (dx with breast ca 9 y ago) All: NKDA Home meds: none Fam hx: denies Soc hx: denies smoking, EtOH or illicit drug use PMD: none Present on Admission - Present on Admission Any Indicators Present on Admission: No History of DVT/PE: No History of Uncontrolled Diabetes: No Urinary Catheter: No Decubitus Ulcer Present: No Review of Systems - Constitutional Constitutional: Chills, Fever - Cardiovascular Cardiovascular: absent: Chest Pain, Dyspnea on Exertion - Respiratory Respiratory: absent: Cough, Dyspnea, Wheezing - Gastrointestinal Gastrointestinal: absent: Constipation, Diarrhea, Nausea, Vomiting - Genitourinary Genitourinary: Dysuria, Flank Pain, Urinary Frequency - Musculoskeletal Musculoskeletal: Back Pain Past Patient History - Infectious Disease Hx of Infectious Diseases: None - Past Social History Smoking Status: Never Smoked - CARDIAC Hx Cardiac Disorders: No - PULMONARY Hx Respiratory Disorders: No - NEUROLOGICAL Hx Neurological Disorder: No - HEENT Hx HEENT Problems: No - RENAL Hx Chronic Kidney Disease: No - ENDOCRINE/METABOLIC Hx Endocrine Disorders: No - HEMATOLOGICAL/ONCOLOGICAL Hx Blood Disorders: Yes Hx Cancer: Yes (breast ca - on tamoxifen) - INTEGUMENTARY Hx Dermatological Problems: No - MUSCULOSKELETAL/RHEUMATOLOGICAL Hx Musculoskeletal Disorders: No - GASTROINTESTINAL Hx Gastrointestinal Disorders: No - GENITOURINARY/GYNECOLOGICAL Hx Genitourinary Disorders: No - PSYCHIATRIC Hx Psychophysiologic Disorder: No Hx Substance Use: No - SURGICAL HISTORY Hx Mastectomy: Yes (right breast 2010) - ANESTHESIA Hx Anesthesia: Yes Hx Anesthesia Reactions: No Hx Malignant Hyperthermia: No Meds Allergies/Adverse Reactions: Allergies Allergy/AdvReac Type Severity Reaction Status Date / Time No Known Allergies Allergy Verified 07/16/18 17:42 Physical Exam - Constitutional Appears: Non-toxic, No Acute Distress - Head Exam Head Exam: ATRAUMATIC, NORMOCEPHALIC - Eye Exam Eye Exam: EOMI, Normal appearance, PERRL - ENT Exam ENT Exam: Mucous Membranes Moist - Respiratory Exam Respiratory Exam: Clear to Auscultation Bilateral, NORMAL BREATHING PATTERN. absent: Rales, Rhonchi, Wheezes - Cardiovascular Exam Cardiovascular Exam: Tachycardia, +S1, +S2. absent: Gallop, Rubs, Systolic Murmur - GI/Abdominal Exam GI & Abdominal Exam: Normal Bowel Sounds, Soft, Tenderness (to palpation in suprapubic region). absent: Distended, Guarding, Organomegaly, Rebound - Back Exam Back exam: CVA tenderness (L), FULL ROM, NORMAL INSPECTION - Neurological Exam Neurological exam: Alert, CN II-XII Intact, Oriented x3, Reflexes Normal - Psychiatric Exam Psychiatric exam: Normal Affect, Normal Mood - Skin Skin Exam: Dry, Intact, Normal Color, Warm Results - Vital Signs Recent Vital Signs: Last Vital Signs Temp 102.4 F H 07/16/18 13:50 Pulse 134 H 07/16/18 13:50 Resp 18 07/16/18 13:50 BP 115/77 07/16/18 13:50 Pulse Ox 98 07/16/18 13:50 - Labs Result Diagrams: 07/16/18 15:24 07/16/18 15:24 Labs: Laboratory Results - last 24 hr 07/16/18 07/16/18 07/16/18 14:45 14:47 15:24 WBC 14.1 H RBC 4.48 Hgb 13.0 Hct 38.0 MCV 84.8 MCH 29.0 MCHC 34.2 RDW 12.7 Plt Count 230 MPV 9.8 Gran % 75.3 H Lymph % (Auto) 13.0 L [place] % (Auto) 11.1 H Eos % (Auto) 0.4 L Baso % (Auto) 0.2 Gran # 10.59 H Lymph # (Auto) 1.8 [place] # (Auto) 1.6 H Eos # (Auto) 0.1 Baso # (Auto) 0.03 PT INR APTT Sodium Potassium Chloride Carbon Dioxide Anion Gap BUN Creatinine Est GFR ( Amer) Est GFR (Non-Af Amer) Random Glucose Calcium Total Bilirubin AST ALT Alkaline Phosphatase Total Protein Albumin Globulin Albumin/Globulin Ratio Beta HCG, Quant Urine Color Yellow Urine Appearance Cloudy Urine pH 6.0 Ur Specific [place] 1.025 Urine Protein 30 H Urine Glucose (UA) Negative Urine Ketones >=80 Urine Blood Moderate H Urine Nitrate Positive H Urine Bilirubin Negative Urine Urobilinogen 0.2 Ur Leukocyte Esterase Small H Urine RBC 1 - 3 H Urine WBC 10 - 15 H Ur Epithelial Cells 3 - 4 Urine Bacteria Many Influenza Typ A,B (EIA) Negative for flu a/b 07/16/18 07/16/18 07/16/18 15:24 15:24 15:24 WBC RBC Hgb Hct MCV MCH MCHC RDW Plt Count MPV Gran % Lymph % (Auto) [place] % (Auto) Eos % (Auto) Baso % (Auto) Gran # Lymph # (Auto) [place] # (Auto) Eos # (Auto) Baso # (Auto) PT 14.4 H INR 1.26 APTT 23.7 L Sodium 135 Potassium 3.4 L Chloride 103 Carbon Dioxide 22 Anion Gap 14 BUN 7 Creatinine 0.6 L Est GFR ( Amer) > 60 Est GFR (Non-Af Amer) > 60 Random Glucose 85 Calcium 9.4 Total Bilirubin 1.2 AST 18 ALT 13 Alkaline Phosphatase 92 Total Protein 8.3 Albumin 4.5 Globulin 3.8 Albumin/Globulin Ratio 1.2 Beta HCG, Quant 3143.70 H Urine Color Urine Appearance Urine pH Ur Specific [place] Urine Protein Urine Glucose (UA) Urine Ketones Urine Blood Urine Nitrate Urine Bilirubin Urine Urobilinogen Ur Leukocyte Esterase Urine RBC Urine WBC Ur Epithelial Cells Urine Bacteria Influenza Typ A,B (EIA) Assessment & Plan - Assessment and Plan (Free Text) Assessment: 32 y o female with PMHx breast ca s/p mastectomy of R breast, chemo and XRT, who presents to the ED c/o L-sided flank pain, burning with urination, and suprapubi c pain x 2 days. Pt admitted for pyelonephritis. Plan: Pyelonephritis U/a on admission: mod blood, pos nitrate, small LE, WBC 10-15, many bacteria WBC 14.1 Febrile to 102.4 in ED, tachycardic Urine cx pending Blood cxs x 2 pending Admit to med/surg IVF at 125 cc/hr Regular diet S/p Rocephin in ED x1 ID consulted (Dr. Coy), recs appreciated Renal U/s: unremarkable Tylenol prn for fevers and back pain LMP 06/16/18 Beta hcG 3143.7 Transvaginal U/s: 5 mm gestational sac within uterus with yolk sac identified. Measurements currently out of range. Findings may represent early normal/abnormal . Close clinical follow-up with serial pelvic sono and serum beta hCG levels is recommended. OB consulted (Dr. Baez), recs appreciated DVT ppx: SCDs GI ppx: n/a Pt seen, examined with, and plan discussed with Dr. Pagan, attending physician. Joseph Jamison DO PGY-1, [employer] Pager #[phone] <Hellen Pagan R - Last Filed: 07/17/18 07:49> Results - Vital Signs Recent Vital Signs: Last Vital Signs Temp 99.4 F 07/16/18 23:05 Pulse 110 H 07/16/18 23:05 Resp 18 07/16/18 23:05 BP 103/63 07/16/18 23:05 Pulse Ox 99 07/16/18 23:05 - Labs Result Diagrams: 07/17/18 06:50 07/16/18 15:24 Labs: Laboratory Results - last 24 hr 07/16/18 07/16/18 07/16/18 14:45 14:47 15:24 WBC 14.1 H RBC 4.48 Hgb 13.0 Hct 38.0 MCV 84.8 MCH 29.0 MCHC 34.2 RDW 12.7 Plt Count 230 MPV 9.8 Gran % 75.3 H Lymph % (Auto) 13.0 L [place] % (Auto) 11.1 H Eos % (Auto) 0.4 L Baso % (Auto) 0.2 Gran # 10.59 H Lymph # (Auto) 1.8 [place] # (Auto) 1.6 H Eos # (Auto) 0.1 Baso # (Auto) 0.03 PT INR APTT pO2 VBG pH VBG pCO2 VBG HCO3 VBG Total CO2 VBG O2 Sat (Calc) VBG Base Excess VBG Potassium Glucose Lactate FiO2 Sodium Potassium Chloride Carbon Dioxide Anion Gap BUN Creatinine Est GFR ( Amer) Est GFR (Non-Af Amer) Random Glucose Calcium Total Bilirubin AST ALT Alkaline Phosphatase Total Protein Albumin Globulin Albumin/Globulin Ratio Beta HCG, Quant Venous Blood Potassium Urine Color Yellow Urine Appearance Cloudy Urine pH 6.0 Ur Specific [place] 1.025 Urine Protein 30 H Urine Glucose (UA) Negative Urine Ketones >=80 Urine Blood Moderate H Urine Nitrate Positive H Urine Bilirubin Negative Urine Urobilinogen 0.2 Ur Leukocyte Esterase Small H Urine RBC 1 - 3 H Urine WBC 10 - 15 H Ur Epithelial Cells 3 - 4 Urine Bacteria Many Influenza Typ A,B (EIA) Negative for flu a/b 07/16/18 07/16/18 07/16/18 15:24 15:24 15:24 WBC RBC Hgb Hct MCV MCH MCHC RDW Plt Count MPV Gran % Lymph % (Auto) [place] % (Auto) Eos % (Auto) Baso % (Auto) Gran # Lymph # (Auto) [place] # (Auto) Eos # (Auto) Baso # (Auto) PT 14.4 H INR 1.26 APTT 23.7 L pO2 VBG pH VBG pCO2 VBG HCO3 VBG Total CO2 VBG O2 Sat (Calc) VBG Base Excess VBG Potassium Glucose Lactate FiO2 Sodium 135 Potassium 3.4 L Chloride 103 Carbon Dioxide 22 Anion Gap 14 BUN 7 Creatinine 0.6 L Est GFR ( Amer) > 60 Est GFR (Non-Af Amer) > 60 Random Glucose 85 Calcium 9.4 Total Bilirubin 1.2 AST 18 ALT 13 Alkaline Phosphatase 92 Total Protein 8.3 Albumin 4.5 Globulin 3.8 Albumin/Globulin Ratio 1.2 Beta HCG, Quant 3143.70 H Venous Blood Potassium Urine Color Urine Appearance Urine pH Ur Specific [place] Urine Protein Urine Glucose (UA) Urine Ketones Urine Blood Urine Nitrate Urine Bilirubin Urine Urobilinogen Ur Leukocyte Esterase Urine RBC Urine WBC Ur Epithelial Cells Urine Bacteria Influenza Typ A,B (EIA) 07/16/18 07/17/18 07/17/18 21:30 02:15 06:50 WBC 11.6 H RBC 3.66 Hgb 10.4 L D Hct 31.1 L MCV 85.0 MCH 28.4 MCHC 33.4 RDW 12.8 Plt Count 213 MPV 9.5 Gran % 67.2 Lymph % (Auto) 16.3 L [place] % (Auto) 15.6 H Eos % (Auto) 0.7 L Baso % (Auto) 0.2 Gran # 7.82 H Lymph # (Auto) 1.9 [place] # (Auto) 1.8 H Eos # (Auto) 0.1 Baso # (Auto) 0.02 PT INR APTT pO2 60 H 60 H VBG pH 7.41 7.42 VBG pCO2 35.0 L 34.0 L VBG HCO3 22.2 22.1 VBG Total CO2 23.3 23.1 VBG O2 Sat (Calc) 94.0 H 94.0 H VBG Base Excess -1.9 L -1.7 L VBG Potassium 3.6 3.6 Glucose 111 H 95 Lactate 0.8 0.6 L FiO2 21.0 21.0 Sodium 136.0 135.0 Potassium Chloride 106.0 106.0 Carbon Dioxide Anion Gap BUN Creatinine Est GFR ( Amer) Est GFR (Non-Af Amer) Random Glucose Calcium Total Bilirubin AST ALT Alkaline Phosphatase Total Protein Albumin Globulin Albumin/Globulin Ratio Beta HCG, Quant Venous Blood Potassium 3.6 3.6 Urine Color Urine Appearance Urine pH Ur Specific [place] Urine Protein Urine Glucose (UA) Urine Ketones Urine Blood Urine Nitrate Urine Bilirubin Urine Urobilinogen Ur Leukocyte Esterase Urine RBC Urine WBC Ur Epithelial Cells Urine Bacteria Influenza Typ A,B (EIA) Attending/Attestation - Attestation I have personally seen and examined this patient.: Yes I have fully participated in the care of the patient.: Yes I have reviewed all pertinent clinical information: Yes Notes (Text): Patient seen and examined by me with resident at 5PM on 07/16/18. Case including HPI, physical exam, and assessment and plan discussed with resident. Agree with above with following additions/corrections. Patient is a 32-year-old [place]vian-speaking female with past medical history significant for UTI and right-sided breast cancer status post radiation, chemotherapy, and mastectomy that presented to the emergency room with left flank pain, fever, and dysuria. inspector automatic typewriter #[id number] used for translation. Patient states that symptoms started approximately 2 days ago. She states that she has been having left-sided back pain (in the left CVA area), lower abdominal pain, and fevers. Patient has also been having dysuria, burning with urination, and increased urinary frequency. Patient states that symptoms have progressively gotten worse over the past 2 days. She has noticed no vaginal discharge or bleeding. Her last menstrual period was 06/16/2018. She was last sexually active 2 days ago. Patient states that she felt like she was having fevers at home however, she did not take her temperature. She did try Advil with little relief. The pain is in her suprapubic region and radiates to her left CVA region. Pain is sharp and crampy in nature. Pain is constant. Patient also has associated nausea but no vomiting. Patient states that she has never been and did not know that she is currently. She states she has also been having generalized body aches. Patient also has been having a headac he. No dizziness or lightheadedness. No change in vision. No chest pain or shortness of breath. No diarrhea or constipation. 12 point review of systems reviewed by me. See above HPI, all other systems negative. Medications at home: Patient denies taking any medications Allergies: No known drug allergies Family history: Mother is alive and healthy. Father is alive and healthy Physical exam: General: Awake and alert lying in bed in no acute distress HEENT: Normocephalic, atraumatic. Extraocular muscles intact, pupils equal and reactive, no scleral icterus. Oropharynx is pink and moist. No pharyngeal erythema or exudate appreciated. Neck is supple. Hearing grossly intact. Ears and nose externally unremarkable. Cardiovascular: Tachycardic S1 and S2. No murmurs, rubs, or gallops appreciated Pulmonary: Normal respiratory effort. No rhonchi, rales, or wheezing appreciated Gastrointestinal: Soft, nondistended. Positive bowel sounds all 4 quadrants. No guarding.Positive for suprapubic tenderness Musculoskeletal: Moves all extremities. No calf tenderness. No edema appreciated. Positive left-sided CVA tenderness Vascular: 2+ peripheral pulses upper and lower extremities Central nervous system: AAOx 3, CN 2-12 grossly intact. 5 out of 5 muscle strength all extremities. Dermatologic: Skin warm and dry. Assessment and plan: Patient is a 32-year-old [place]vian-speaking female with past medical history significant for UTI and right-sided breast cancer status post radiation, chemotherapy, and mastectomy that presented to the emergency room with left flank pain, fever, and dysuria. 1. Sepsis secondary to Pyelonephritis. Patient with tachycardia, fever, and leukocytosis. Urinalysis positive for UTI. Positive left CVA tenderness. Renal ultrasound per radiologist showed unremarkable renal sonogram. Transvaginal ultrasound per radiologist showed 5 mm gestational sac within the uterus with yolk sac identified, measurements are currently out of range, findings may represent early normal/abnormal . ID consulted, follow up recommendations. automatic gluing machine operator consulted, follow up recommendations. Urine culture pending. Case was discussed in detail with the patient regarding diagnosis and treatment plan. All questions answered. Placed on Rocephin and IV fluids. 2. . Transvaginal ultrasound as above. Last menstrual period 06/16/2018. Beta HCG was 3143.70. EXTENSION EDUCATOR consulted, follow-up recommendations. 3. Hypokalemia. Will replace with PO potassium. Follow up repeat labs in AM 4. History of breast cancer. S/P right breast mastectomy. No acute issues. 5. DVT prophylaxis. SCDs. Case was discussed with patient in detail regarding current diagnosis and treatment plan. All questions answered.
[2018-07-16] MEDS ORDERED: Influenza Vaccine 60 mcg/0.5 mL SYR (4YR UP) IM ONE (20:13)
[2018-07-16] MEDS ORDERED: Pneumococcal 23-Valent Vaccine IM ONE (20:13)
[2018-07-16 21:43] LABS: VENOUS BLOOD GAS BASE EXCESS -1.9 mmol/L (0.0-2.0); VENOUS BLOOD GAS PO2 60 mm/Hg (30-55); VENOUS BLOOD PH 7.41 (7.32-7.43)
[2018-07-17 02:32] LABS: VENOUS BLOOD GAS BASE EXCESS -1.7 mmol/L (0.0-2.0); VENOUS BLOOD GAS PO2 60 mm/Hg (30-55); VENOUS BLOOD PH 7.42 (7.32-7.43)
[2018-07-17 07:18] LABS: BASO # 0.02 K/mm3 (0.0-2.0); BASO % 0.2 % (0.0-3.0); EOS # 0.1 (0.0-0.7); EOS % 0.7 % (1.5-5.0); GRAN # 7.82 (1.4-6.5); GRAN % 67.2 % (50.0-68.0); LYMPH # 1.9 (1.2-3.4); LYMPH % 16.3 % (22.0-35.0); MEAN CORPUSCULAR HEMOGLOBIN 28.4 pg (25.0-35.0); MEAN CORPUSCULAR HGB CONC 33.4 g/dl (31.0-37.0); MEAN PLATELET VOLUME 9.5 fl (7.0-11.0); MONO # 1.8 (0.1-0.6); MONO % 15.6 % (1.0-6.0); RBC 3.66 10^6/uL (3.5-6.1); RED CELL DISTRIBUTION WIDTH 12.8 % (11.5-14.5); WHITE BLOOD COUNT 11.6 10^3/uL (4.5-11.0)
[2018-07-17 07:31] LABS: HEMOGLOBIN 10.4 g/dL (12.0-16.0)
[2018-07-17 07:54] LABS: ALBUMIN 3.6 g/dL (3.0-4.8); ALT/SGPT 22 U/L (7-56); AST/SGOT 21 U/L (14-36); BLOOD UREA NITROGEN 5 mg/dL (7-21); CALCIUM 8.5 mg/dL (8.4-10.5); GFR NON-AFRICAN AMERICAN > 60
[2018-07-17] MEDS ORDERED: cefTRIAXone 1 gm 1 GM/100 ML BAG IVPB SCH (10:00)
--- NOTE | 2018-07-17 15:19 | CP.PCM.PN ---
<RobertDavid - Last Filed: 07/17/18 15:35> Subjective - Date & Time of Evaluation Date of Evaluation: 07/17/18 Time of Evaluation: 08:00 - Subjective Subjective: Pt seen and examined at bedside. Pt reports flank pain, and excess urination. Pt denies pain with urination, fever, or chills. Objective - Vital Signs/Intake and Output Vital Signs (last 24 hours): Temp Pulse Resp BP Pulse Ox 98.2 F 88 18 103/69 99 07/17/18 06:00 07/17/18 06:00 07/17/18 06:00 07/17/18 06:00 07/17/18 06:00 - Medications Medications: Current Medications Acetaminophen (Tylenol 325mg Tab) 650 mg PO Q6H PRN PRN Reason: Fever >100.4 F Last Admin: 07/17/18 02:48 Dose: 650 mg Acetaminophen (Tylenol 325mg Tab) 650 mg PO Q6H PRN PRN Reason: Pain, severe (8-10) Last Admin: 07/16/18 18:40 Dose: 650 mg Ceftriaxone Sodium (Rocephin 1 Gram Ivpb) 1 gm in 100 mls @ 100 mls/hr IVPB DAILY CUONG; Protocol Stop: 07/24/18 10:01 - Labs Labs: 07/17/18 06:50 07/17/18 06:50 PT 14.4 SECONDS (9.4-12.5) H 07/16/18 15:24 INR 1.26 07/16/18 15:24 APTT 23.7 Seconds (25.1-36.5) L 07/16/18 15:24 - Constitutional Appears: No Acute Distress - Head Exam Head Exam: ATRAUMATIC, NORMOCEPHALIC - Eye Exam Eye Exam: EOMI - ENT Exam ENT Exam: Mucous Membranes Moist - Neck Exam Neck Exam: Full ROM - Respiratory Exam Respiratory Exam: Clear to Ausculation Bilateral, NORMAL BREATHING PATTERN. absent: Accessory Muscle Use, Wheezes, Respiratory Distress - Cardiovascular Exam Cardiovascular Exam: +S1, +S2. absent: Diastolic murmur - GI/Abdominal Exam GI & Abdominal Exam: Soft, Normal Bowel Sounds - Extremities Exam Extremities Exam: Full ROM - Back Exam Back Exam: CVA tenderness (L). absent: CVA tenderness (R) - Neurological Exam Neurological Exam: Alert, Awake, Oriented x3 - Psychiatric Exam Psychiatric exam: Normal Affect, Normal Mood - Skin Skin Exam: Dry, Intact, Warm Assessment and Plan - Assessment and Plan (Free Text) Assessment: 32 yo female with PMHx breast ca s/p mastectomy of R breast, chemo and XRT, who presents to the ED c/o L-sided flank pain, burning with urination, and suprapubic pain x 2 days. Pt admitted for pyelonephritis. Plan: Pyelonephritis - UA: mod blood, pos nitrate, small LE, WBC 10-15, many bacteria - WBC improved from 14.1 to 11.6 - Afebrile - Urine cultures GNR - Blood cultures, pending - Regular diet - Rocephin - Renal US: unremarkable - follow up Chlamydia/GC, HIV, RPR - ID consulted, Dr. Coy - LMP 06/16/18 - Beta hcG 3143.7, repeat tomorrow morning - Transvaginal U/s: 5 mm gestational sac within uterus with yolk sac identified. Measurements currently out of range. Findings may represent early normal/abnormal . Close clinical follow-up with serial pelvic sono and serum beta hCG levels is recommended. - repeat Transvaginal US tomorrow morning - OB consulted, Dr. Baez Ppx - SCDs Pt seen, examined, assessment and plan discussed with Dr. Hellen Jones PGY1, Internal Medicine Resident <Hellen Pagan R - Last Filed: 07/21/18 13:56> Objective - Vital Signs/Intake and Output Vital Signs (last 24 hours): Temp Pulse Resp BP Pulse Ox 98.8 F 60 20 101/60 100 07/20/18 22:00 07/21/18 06:00 07/21/18 06:00 07/21/18 06:00 07/21/18 06:00 - Medications Medications: Current Medications Acetaminophen (Tylenol 325mg Tab) 650 mg PO Q6H PRN PRN Reason: Fever >100.4 F Last Admin: 07/17/18 16:33 Dose: 650 mg Acetaminophen (Tylenol 325mg Tab) 650 mg PO Q6H PRN PRN Reason: Pain, severe (8-10) Last Admin: 07/21/18 00:42 Dose: 650 mg Meropenem (Merrem Iv 1 Gm Premix) 1 gm in 50 mls @ 100 mls/hr IVPB Q8 CUONG; Protocol Stop: 07/25/18 11:25 Last Admin: 07/21/18 05:56 Dose: 100 mls/hr - Labs Labs: 07/19/18 07:00 07/19/18 07:00 PT 14.4 SECONDS (9.4-12.5) H 07/16/18 15:24 INR 1.26 07/16/18 15:24 APTT 23.7 Seconds (25.1-36.5) L 07/16/18 15:24 Attending/Attestation - Attestation I have personally seen and examined this patient.: Yes I have fully participated in the care of the patient.: Yes I have reviewed all pertinent clinical information, including history, physical exam and plan: Yes Notes (Text): Patient seen and examined by me with resident at 11:40AM on 07/17/18. Case including HPI, physical exam, and assessment and plan discussed with resident. Agree with above with following additions/corrections. Patient is a 32-year-old Afghan-speaking female with past medical history significant for UTI and right-sided breast cancer status post radiation, chemotherapy, and mastectomy that presented to the emergency room with left flank pain, fever, and dysuria. Patient states she is feeling better today. Left CVA tenderness improved. Dysuria improved. Headache resolved. No dizziness or lightheadedness. No change in vision. No chest pain or shortness of breath. No diarrhea or constipation. No nausea, vomiting, or abdominal pain. Physical exam: General: Awake and alert lying in bed in no acute distress HEENT: Normocephalic, atraumatic. Extraocular muscles intact, pupils equal and reactive, no scleral icterus. Oropharynx is pink and moist. No pharyngeal erythema or exudate appreciated. Neck is supple. Cardiovascular: Normal rhythm. Normal S1 and S2. No murmurs, rubs, or gallops appreciated Pulmonary: Normal respiratory effort. No rhonchi, rales, or wheezing appreciated Gastrointestinal: Soft, nondistended.Nontender. Positive bowel sounds all 4 quadrants. No guarding. Musculoskeletal: Moves all extremities. No calf tenderness. No edema appreciated. Improved left-sided CVA tenderness Central nervous system: AAOx 3, CN 2-12 grossly intact. Dermatologic: Skin warm and dry. Assessment and plan: Patient is a 32-year-old Afghan-speaking female with past medical history significant for UTI and right-sided breast cancer status post radiation, chemotherapy, and mastectomy that presented to the emergency room with left flank pain, fever, and dysuria. 1. Sepsis secondary to Pyelonephritis. Afebrile so far today. Leukocytosis downtrending. Urinalysis positive for UTI. Urine culture shows gram negative rods, pending final culture. Follow up chlamydia, gonorrhea, HIV, RPR. Blood cultures pending. Improved left CVA tenderness. ID following, recommendations appreciated. Continue Rocephin. Renal ultrasound per radiologist showed unremarkable renal sonogram. Transvaginal ultrasound per radiologist showed 5 mm gestational sac within the uterus with yolk sac identified, measurements are currently out of range, findings may represent early normal/abnormal . 2. . Transvaginal ultrasound as above. Last menstrual period 8. Beta HCG was 3143.70. Case discussed at length to SUPERVISOR [employer]AL[employer]ING via phone who stated patient to have repeat HCG in 48 hours and repeat transvaginal ultrasound. 3. Hypokalemia. Resolved. Continue to monitor. 4. History of breast cancer. S/P right breast mastectomy. No acute issues. 5. DVT prophylaxis. SCDs. Case was discussed with patient in detail regarding current diagnosis and treatment plan. All questions answered.
--- NOTE | 2018-07-17 16:43 | CON ---
DATE: 07/17/2018 The patient is seen in room 578, bed 2. CHIEF COMPLAINT: Fever and back pain, several days. HISTORY OF PRESENT ILLNESS: This is a 32-year-old female, [place] [facility] [place] a history of urinary tract infection in March with E. coli, resistant to ampicillin at that time, resistant to Cipro, and resistant to Bactrim, and at that time was given , was treated, and blood cultures at that time were negative in March. The patient with a history of right mastectomy because of right breast cancer, has had chemotherapy and radiation and that was years ago and was admitted with dysuria and frequency, and fevers, chills, and body aches. PAST MEDICAL HISTORY: Significant for breast cancer and urinary tract infection with E. coli. PAST SURGICAL HISTORY: Significant for right mastectomy. ALLERGIES: THE PATIENT HAS NO KNOWN ALLERGIES. MEDICATIONS AT HOME: Include tamoxifen and Motrin. PHYSICAL EXAMINATION: GENERAL: The patient is in bed, answering questions appropriately. VITAL SIGNS: Temperature of 98; T-max was 102.4; heart rate was 85, it was up to 134 on admission; respiratory rate of 19 with a blood pressure of 125/50. HEENT: Unremarkable. NECK: Supple. LUNGS: Decreased breath sounds. HEART: Normal S1, S2. ABDOMEN: Soft, nontender. No rebound. No guarding. No masses. There is left-sided CVA tenderness. LABORATORY DATA: Laboratory examination reveals the patient's white count of 14,000, hemoglobin of 13, platelets of 230 with 75% granulocytosis. Coagulation is noted. Chemistries reveal a BUN of 7, creatinine of 0.6. Beta-hCG quantitative is 3143. Urinalysis is noted and 10-15 wbc's, many bacteria. Influenza is negative. Microbiology is reviewed, and the patient had an ultrasound which is noted. Renal ultrasound is reviewed. ASSESSMENT AND PLAN: This is a 32-year-old Sergio female with history of Escherichia colitis, urinary tract infection, right breast cancer, admitted with sepsis with a left pyelonephritis in a patient who is with breast cancer. We will treat the patient with ceftriaxone. Pending blood cultures, urine cultures were ordered and HIV, Chlamydia, GC workup and RPR and FTA. We will make further recommendations. The patient has not had any history of sexually transmitted diseases in the past, has a steady partner for now at this time, and we will follow closely with you. Kaden Aguilar MD
[2018-07-18 07:16] LABS: BASO # 0.02 K/mm3 (0.0-2.0); BASO % 0.2 % (0.0-3.0); EOS # 0.2 (0.0-0.7); EOS % 2.8 % (1.5-5.0); GRAN # 5.61 (1.4-6.5); GRAN % 65.9 % (50.0-68.0); HEMOGLOBIN 10.7 g/dL (12.0-16.0); LYMPH # 1.5 (1.2-3.4); LYMPH % 18.1 % (22.0-35.0); MEAN CELL VOLUME 84.4 fl (80.0-105.0); MEAN CORPUSCULAR HEMOGLOBIN 28.2 pg (25.0-35.0); MEAN CORPUSCULAR HGB CONC 33.4 g/dl (31.0-37.0); MEAN PLATELET VOLUME 9.4 fl (7.0-11.0); MONO # 1.1 (0.1-0.6); RBC 3.79 10^6/uL (3.5-6.1); RED CELL DISTRIBUTION WIDTH 12.8 % (11.5-14.5); WHITE BLOOD COUNT 8.5 10^3/uL (4.5-11.0)
[2018-07-18 07:31] LABS: ALB/GLOB RATIO 1.1 (1.1-1.8); ALBUMIN 3.8 g/dL (3.0-4.8); ALT/SGPT 30 U/L (7-56); AST/SGOT 27 U/L (14-36); BLOOD UREA NITROGEN 4 mg/dL (7-21); CALCIUM 8.9 mg/dL (8.4-10.5); GFR NON-AFRICAN AMERICAN > 60
--- NOTE | 2018-07-18 11:52 | US ---
Date of service: 07/18/2018 PROCEDURE: OB Pelvic Ultrasound HISTORY: positive BHCG COMPARISON: None available. FINDINGS: UTERUS: Single intrauterine gestation. Yolk sac is visualized. pole is not identified on the current examination Gestational sac diameter measures 0.72 cm too small to estimate gestational age. Veronica-gestational hemorrhage: None. Uterus measures 8.6 x 5.3 x 5.3 cm. There is a 1.8 x 2.3 x 1.8 cm anterior wall intramural fibroid and 0.6 x 0.4 x 0.5 cm posterior wall intramural fibroid. CERVIX: Long and closed. No cervical abnormality seen. RIGHT OVARY: Measures 3.9 x 2.2 x 3.7 cm. No mass. Normal flow. There is a 1.7 x 1.5 x 1.5 cm corpus luteum cyst. LEFT OVARY: Measures 3.3 x 1.2 x 2.8 cm. No mass. Normal flow. FREE FLUID: None. OTHER FINDINGS: None. IMPRESSION: Single intrauterine gestational sac too small to accurately estimate gestational age. Fibroid uterus, the larger anterior wall intramural fibroid measures 1.8 x 2.3 x 1.8 cm. Clinical and ultrasound follow-up is recommended to confirm viability.
--- NOTE | 2018-07-18 13:44 | CP.PCM.PN ---
<David Jones - Last Filed: 07/18/18 14:00> Subjective - Date & Time of Evaluation Date of Evaluation: 07/18/18 Time of Evaluation: 08:00 - Subjective Subjective: Pt seen and examined. Pt has not new complaints at this time. Pt states she has been urinating more, but denies urgency, burning, suprapubic pain. Objective - Vital Signs/Intake and Output Vital Signs (last 24 hours): Temp Pulse Resp BP Pulse Ox 98.1 F 89 20 109/65 100 07/18/18 06:00 07/18/18 06:00 07/18/18 06:00 07/18/18 06:00 07/18/18 06:00 Intake and Output: 07/18/18 07/18/18 06:59 18:59 Intake Total 720 Balance 720 - Medications Medications: Current Medications Acetaminophen (Tylenol 325mg Tab) 650 mg PO Q6H PRN PRN Reason: Fever >100.4 F Last Admin: 07/17/18 16:33 Dose: 650 mg Acetaminophen (Tylenol 325mg Tab) 650 mg PO Q6H PRN PRN Reason: Pain, severe (8-10) Last Admin: 07/18/18 11:13 Dose: 650 mg Meropenem (Merrem Iv 1 Gm Premix) 1 gm in 50 mls @ 100 mls/hr IVPB Q8 CUONG; Protocol Stop: 07/25/18 11:25 - Labs Labs: 07/18/18 06:45 07/18/18 06:45 PT 14.4 SECONDS (9.4-12.5) H 07/16/18 15:24 INR 1.26 07/16/18 15:24 APTT 23.7 Seconds (25.1-36.5) L 07/16/18 15:24 - Constitutional Appears: No Acute Distress - Head Exam Head Exam: ATRAUMATIC, NORMOCEPHALIC - Eye Exam Eye Exam: EOMI - ENT Exam ENT Exam: Mucous Membranes Moist - Neck Exam Neck Exam: Full ROM - Respiratory Exam Respiratory Exam: Clear to Ausculation Bilateral, NORMAL BREATHING PATTERN. absent: Accessory Muscle Use, Respiratory Distress - Cardiovascular Exam Cardiovascular Exam: +S1, +S2. absent: Diastolic murmur, Murmur - GI/Abdominal Exam GI & Abdominal Exam: Soft, Normal Bowel Sounds. absent: Tenderness - Extremities Exam Extremities Exam: Full ROM. absent: Pedal Edema, Tenderness - Neurological Exam Neurological Exam: Alert, Awake, Oriented x3 - Psychiatric Exam Psychiatric exam: Normal Affect, Normal Mood - Skin Skin Exam: Dry, Normal Color, Warm Assessment and Plan - Assessment and Plan (Free Text) Assessment: 32 yo female with PMHx breast ca s/p mastectomy of R breast, chemo and XRT, who presents to the ED c/o L-sided flank pain, burning with urination, and suprapubic pain x 2 days. Pt admitted for pyelonephritis. Plan: Sepsis 2/2 Pyelonephritis, improving - UA: mod blood, pos nitrate, small LE, WBC 10-15, many bacteria - Leukocytosis has improved - Urine cultures GNR - Blood cultures, NGTD - Regular diet - Meropenem - Renal US: unremarkable - follow up Chlamydia/GC, HIV, RPR - ID consulted - LMP 06/16/18 - Beta hcG 3143.7, repeat level 4131.4 - Transvaginal U/s: 5 mm gestational sac within uterus with yolk sac identified. - repeat Transvaginal US today shows a single intrauterine gestational sac too small to accurately estimate gestational age - OB consulted Dr. Baez, spoke with on phone 1:40PM 07/18/18, ([phone]) recommends that pt follow up with OBGYN as out pt after discharge to determine if this is a viable/ nonviable Ppx - SCDs Pt seen, examined, assessment and plan discussed with Dr. Hellen Jones PGY1, Internal Medicine Resident <Hellen Pagan R - Last Filed: 07/21/18 14:11> Objective - Vital Signs/Intake and Output Vital Signs (last 24 hours): Temp Pulse Resp BP Pulse Ox 98.8 F 60 20 101/60 100 07/20/18 22:00 07/21/18 06:00 07/21/18 06:00 07/21/18 06:00 07/21/18 06:00 - Medications Medications: Current Medications Acetaminophen (Tylenol 325mg Tab) 650 mg PO Q6H PRN PRN Reason: Fever >100.4 F Last Admin: 07/17/18 16:33 Dose: 650 mg Acetaminophen (Tylenol 325mg Tab) 650 mg PO Q6H PRN PRN Reason: Pain, severe (8-10) Last Admin: 07/21/18 00:42 Dose: 650 mg Meropenem (Merrem Iv 1 Gm Premix) 1 gm in 50 mls @ 100 mls/hr IVPB Q8 CUONG; Protocol Stop: 07/25/18 11:25 Last Admin: 07/21/18 05:56 Dose: 100 mls/hr - Labs Labs: 07/19/18 07:00 07/19/18 07:00 PT 14.4 SECONDS (9.4-12.5) H 07/16/18 15:24 INR 1.26 07/16/18 15:24 APTT 23.7 Seconds (25.1-36.5) L 07/16/18 15:24 Attending/Attestation - Attestation I have personally seen and examined this patient.: Yes I have fully participated in the care of the patient.: Yes I have reviewed all pertinent clinical information, including history, physical exam and plan: Yes Notes (Text): Patient seen and examined by me with resident at 9:20AM on 07/18/18. Case including HPI, physical exam, and assessment and plan discussed with resident. Agree with above with following additions/corrections. Patient is a 32-year-old [place]ry[place]-speaking female with past medical history significant for UTI and right-sided breast cancer status post radiation, chemotherapy, and mastectomy that presented to the emergency room with left flank pain, fever, and dysuria. skip pit worker used. Patient states she is feeling much better. Left CVA tenderness resolved. Dysuria resolved. Patient states she is only having increased urinary frequency. No headaches, dizziness, or lightheadedness. No change in vision. No chest pain or shortness of breath. No diarrhea or constipation. No nausea, vomiting, or abdominal pain. Physical exam: General: Awake and alert lying in bed in no acute distress HEENT: Normocephalic, atraumatic. Extraocular muscles intact, pupils equal and reactive, no scleral icterus. Oropharynx is pink and moist. No pharyngeal erythema or exudate appreciated. Neck is supple. Cardiovascular: Normal rhythm. Normal S1 and S2. No murmurs, rubs, or gallops appreciated Pulmonary: Normal respiratory effort. No rhonchi, rales, or wheezing appreciated Gastrointestinal: Soft, nondistended.Nontender. Positive bowel sounds all 4 quadrants. No guarding. Musculoskeletal: Moves all extremities. No calf tenderness. No edema appreciated. No CVA tenderness Central nervous system: AAOx 3, CN 2-12 grossly intact. Dermatologic: Skin warm and dry. Assessment and plan: Patient is a 32-year-old [place]-speaking female with past medical history significant for UTI and right-sided breast cancer status post radiation, chemotherapy, and mastectomy that presented to the emergency room with left flank pain, fever, and dysuria. 1. Sepsis secondary to Pyelonephritis. Febrile yesterday afternoon. Afebrile now. Leukocytosis resolved. Urinalysis positive for UTI. Urine culture shows gram negative rods, pending final culture. Follow up chlamydia, gonorrhea, HIV, RPR. Blood cultures with no growth. Resolved left CVA tenderness. ID following, recommendations appreciated. Continue Rocephin. Renal ultrasound per radiologist showed unremarkable renal sonogram. 2. . Transvaginal ultrasound per radiologist showed 5 mm gestational sac within the uterus with yolk sac identified, measurements are currently out of range, findings may represent early normal/abnormal . Last menstrual period 06/16/2018. Beta HCG was 3143.70. Repeat level today 4131.4. Repeat transvaginal ultrasound per radiologist showed single intrauterine gestational sac too small to accurately estimate gestational age; fibroid uterus the larger anterior wall intramural fibroid measures 1.8 x2.3 x1.8cm. Case was discussed at length with electromechanical technologist Dr. Baez who stated that patient will need to follow up at the [facility] after discharge from hospital to determine viability of . 3. Hypokalemia. Resolved. Continue to monitor. 4. History of breast cancer. S/P right breast mastectomy. No acute issues. 5. DVT prophylaxis. SCDs. Case was discussed with patient in detail regarding current diagnosis and treatment plan. All questions answered.
[2018-07-18] MEDS: Meropenem IV 1 gm in NS 1 GM/50 ML BAG IVPB SCH ×3 (15:15→21:29)
--- NOTE | 2018-07-18 16:08 | PN ---
DATE: 07/18/2018 SUBJECTIVE: The patient was seen earlier this morning, doing well, afebrile. She was to be discharged. PHYSICAL EXAMINATION: VITAL SIGNS: She did have a temperature of 101.4 earlier today and blood pressure is 106/60, respiratory rate of 18. HEENT: Unremarkable. NECK: Supple. LUNGS: Have decreased breath sounds. HEART: Normal S1, S2. ABDOMEN: Soft and nontender. The CVA tenderness is less. LABORATORY DATA: Examination reveals the white count is normal at 8.5, BUN of 4, creatinine of 0.4. Urinalysis is noted. Microbiology reveals a gram-negative tyler in the urine. The blood cultures are negative. Identification is sensitive to the gram-negative tyler is noted. ASSESSMENT AND PLAN: This is a 32-year-old Iraqi female with a history of breast cancer and radiation and chemotherapy and recent urinary tract infection in March with Escherichia Coli, now presents with sepsis with a left-sided pyelonephritis with a gram-negative tyler. We will discontinue ceftriaxone and use meropenem pending identification and sensitivity to gram-negative tyler, most likely sensitive organism, although the patient did have a fever again today. The patient's HIV is negative. RPR is negative. Influenza is negative and GC and Chlamydia workup is still pending. We will follow with you. Kaden Aguilar MD
[2018-07-19] MEDS: Meropenem IV 1 gm in NS 1 GM/50 ML BAG IVPB SCH ×3 (06:32→21:21)
[2018-07-19 07:38] LABS: BASO # 0.03 K/mm3 (0.0-2.0); BASO % 0.5 % (0.0-3.0); EOS # 0.2 (0.0-0.7); EOS % 3.7 % (1.5-5.0); GRAN # 3.92 (1.4-6.5); GRAN % 60.9 % (50.0-68.0); HEMOGLOBIN 11.2 g/dL (12.0-16.0); LYMPH # 1.5 (1.2-3.4); MEAN CELL VOLUME 84.7 fl (80.0-105.0); MEAN CORPUSCULAR HEMOGLOBIN 28.1 pg (25.0-35.0); MEAN CORPUSCULAR HGB CONC 33.2 g/dl (31.0-37.0); MEAN PLATELET VOLUME 9.3 fl (7.0-11.0); MONO # 0.7 (0.1-0.6); MONO % 10.9 % (1.0-6.0); RBC 3.98 10^6/uL (3.5-6.1); RED CELL DISTRIBUTION WIDTH 12.7 % (11.5-14.5); WHITE BLOOD COUNT 6.4 10^3/uL (4.5-11.0)
[2018-07-19 08:07] LABS: ALB/GLOB RATIO 1.1 (1.1-1.8); ALT/SGPT 37 U/L (7-56); AST/SGOT 34 U/L (14-36); BLOOD UREA NITROGEN 10 mg/dL (7-21); CALCIUM 9.1 mg/dL (8.4-10.5); GFR NON-AFRICAN AMERICAN > 60
--- NOTE | 2018-07-19 13:56 | CP.PCM.PN ---
<Kristi Crawford - Last Filed: 07/19/18 13:38> Subjective - Date & Time of Evaluation Date of Evaluation: 07/19/18 Time of Evaluation: 13:38 - Subjective Subjective: ID Progress Note PGY-[address] Coy Pt denies fever, chills, SOB, SCOTT, CP, N/V/D/C, dysuria. Objective - Vital Signs/Intake and Output Vital Signs (last 24 hours): Temp Pulse Resp BP Pulse Ox 98.5 F 80 18 112/69 99 07/19/18 06:00 07/19/18 06:00 07/19/18 06:00 07/19/18 06:00 07/19/18 06:00 Intake and Output: 07/19/18 07/19/18 06:59 18:59 Intake Total 480 Balance 480 - Medications Medications: Current Medications Acetaminophen (Tylenol 325mg Tab) 650 mg PO Q6H PRN PRN Reason: Fever >100.4 F Last Admin: 07/17/18 16:33 Dose: 650 mg Acetaminophen (Tylenol 325mg Tab) 650 mg PO Q6H PRN PRN Reason: Pain, severe (8-10) Last Admin: 07/18/18 11:13 Dose: 650 mg Meropenem (Merrem Iv 1 Gm Premix) 1 gm in 50 mls @ 100 mls/hr IVPB Q8 CUONG; Protocol Stop: 07/25/18 11:25 Last Admin: 07/19/18 06:32 Dose: 100 mls/hr - Labs Labs: 07/19/18 07:00 07/19/18 07:00 PT 14.4 SECONDS (9.4-12.5) H 07/16/18 15:24 INR 1.26 07/16/18 15:24 APTT 23.7 Seconds (25.1-36.5) L 07/16/18 15:24 - Constitutional Appears: No Acute Distress - Head Exam Head Exam: ATRAUMATIC, NORMAL INSPECTION, NORMOCEPHALIC - Eye Exam Eye Exam: EOMI, Normal appearance, PERRL. absent: Scleral icterus Pupil Exam: NORMAL ACCOMODATION - ENT Exam ENT Exam: Mucous Membranes Moist - Neck Exam Additional comments: supple - Respiratory Exam Respiratory Exam: Clear to Ausculation Bilateral, NORMAL BREATHING PATTERN. a bsent: Rales, Rhonchi, Wheezes - Cardiovascular Exam Cardiovascular Exam: REGULAR RHYTHM, +S1, +S2. absent: Murmur - GI/Abdominal Exam GI & Abdominal Exam: Soft. absent: Guarding, Rigid, Tenderness Additional comments: No suprapubic tenderness - Extremities Exam Extremities Exam: absent: Calf Tenderness, Pedal Edema - Back Exam Back Exam: absent: CVA tenderness (L), CVA tenderness (R) - Neurological Exam Neurological Exam: Alert, Awake, Oriented x3 - Psychiatric Exam Psychiatric exam: Normal Affect, Normal Mood - Skin Skin Exam: Dry, Warm Assessment and Plan - Assessment and Plan (Free Text) Plan: Ms Sharif, 32F, , LMP 06/16/18, Sergio, with Hx Breast cancer, stage 3, (s/p chemo, radiation, mastectomy 5-6 years ago), admitted for complicated UTI with pyelonephritis, , and multi-drug resistant organisms. A: Sepsis from L pyelonephritis - leukocytosis and fever resolved ESBI E-coli UTI/cystitis complicated with pyelonephrtitis, , and multi-drug resistant organisms Hx E-coli UTI 03/2018 P: Merem 1gq8 (day 2) for a total of 7-10 days OBGYN follow up continue to trend VS, WBC, clinical course Lab/Imaging: - BCx: neg x 2d - UCx: ESBL E-coli - HIV neg. - RPR neg. FTA-ABS: neg - flu: neg - GC/Chlamydia: ____ s/r/d/w Dr Coy <Stephen Coy S - Last Filed: 07/19/18 19:43> Objective - Vital Signs/Intake and Output Vital Signs (last 24 hours): Temp Pulse Resp BP Pulse Ox 98.1 F 82 18 103/69 98 07/19/18 14:00 07/19/18 14:00 07/19/18 14:00 07/19/18 14:00 07/19/18 14:00 - Medications Medications: Current Medications Acetaminophen (Tylenol 325mg Tab) 650 mg PO Q6H PRN PRN Reason: Fever >100.4 F Last Admin: 07/17/18 16:33 Dose: 650 mg Acetaminophen (Tylenol 325mg Tab) 650 mg PO Q6H PRN PRN Reason: Pain, severe (8-10) Last Admin: 07/18/18 11:13 Dose: 650 mg Meropenem (Merrem Iv 1 Gm Premix) 1 gm in 50 mls @ 100 mls/hr IVPB Q8 CUONG; Protocol Stop: 07/25/18 11:25 Last Admin: 07/19/18 13:51 Dose: 100 mls/hr - Labs Labs: 07/19/18 07:00 07/19/18 07:00 PT 14.4 SECONDS (9.4-12.5) H 07/16/18 15:24 INR 1.26 07/16/18 15:24 APTT 23.7 Seconds (25.1-36.5) L 07/16/18 15:24 Assessment and Plan - Assessment and Plan (Free Text) Plan: Infectious diseases Attending Physician Attestation Patient seen and examined, discussed with medical instructor. I have reviewed the patient's history of present illness, past medical, social, personal and family histories, pertinent physical exam findings, course so far in this hospital admission, pertinent laboratory and imaging results. I agree with the above findings, assessment and plan. In addition, continue Merrem for this patient with sepsis from ESBL E. coli left sided pyelonephritis (day 3 of 10-14 days). Merrem is Category B, in this patient with probable .
--- NOTE | 2018-07-19 18:36 | CP.PCM.PN ---
<RobertDavid Venkata - Last Filed: 07/19/18 18:45> Subjective - Date & Time of Evaluation Date of Evaluation: 07/19/18 Time of Evaluation: 08:50 - Subjective Subjective: Pt seen and examined. Pt reports frequent urination, denies suprapubic pain, burning with urination, or malodor Objective - Vital Signs/Intake and Output Vital Signs (last 24 hours): Temp Pulse Resp BP Pulse Ox 98.1 F 82 18 103/69 98 07/19/18 14:00 07/19/18 14:00 07/19/18 14:00 07/19/18 14:00 07/19/18 14:00 Intake and Output: 07/19/18 07/19/18 06:59 18:59 Intake Total 480 Balance 480 - Medications Medications: Current Medications Acetaminophen (Tylenol 325mg Tab) 650 mg PO Q6H PRN PRN Reason: Fever >100.4 F Last Admin: 07/17/18 16:33 Dose: 650 mg Acetaminophen (Tylenol 325mg Tab) 650 mg PO Q6H PRN PRN Reason: Pain, severe (8-10) Last Admin: 07/18/18 11:13 Dose: 650 mg Meropenem (Merrem Iv 1 Gm Premix) 1 gm in 50 mls @ 100 mls/hr IVPB Q8 CUONG; Protocol Stop: 07/25/18 11:25 Last Admin: 07/19/18 13:51 Dose: 100 mls/hr - Labs Labs: 07/19/18 07:00 07/19/18 07:00 PT 14.4 SECONDS (9.4-12.5) H 07/16/18 15:24 INR 1.26 07/16/18 15:24 APTT 23.7 Seconds (25.1-36.5) L 07/16/18 15:24 - Constitutional Appears: No Acute Distress - Head Exam Head Exam: ATRAUMATIC, NORMOCEPHALIC - Eye Exam Eye Exam: EOMI - ENT Exam ENT Exam: Mucous Membranes Moist - Respiratory Exam Respiratory Exam: Clear to Ausculation Bilateral, NORMAL BREATHING PATTERN. absent: Accessory Muscle Use - Cardiovascular Exam Cardiovascular Exam: RRR, +S1, +S2 - GI/Abdominal Exam GI & Abdominal Exam: Soft, Normal Bowel Sounds - Extremities Exam Extremities Exam: Full ROM. absent: Calf Tenderness, Pedal Edema, Tenderness - Neurological Exam Neurological Exam: Alert, Awake, Oriented x3 - Psychiatric Exam Psychiatric exam: Normal Affect, Normal Mood - Skin Skin Exam: Dry, Normal Color, Warm Assessment and Plan - Assessment and Plan (Free Text) Assessment: Pt is a 32 yo female with PMH of breast ca s/p mastectomy of R breast, who presents to the ED with Left sided flank pain, burning with urination, and suprapubic pain x 2 days. Pt admitted for pyelonephritis. Plan: Sepsis 2/2 Pyelonephritis, improving - Leukocytosis has improved - Urine cultures growing ESBL E. coli - Blood cultures, NGTD - Regular diet - Meropenem for 7-10 total days - Renal US: unremarkable - FTA-ABS non reactive - HIV non reactive - RPR nonreactive - ID consulted - LMP 06/16/18, BHCG 3143.7, repeat level 4131.4 - Transvaginal U/s: 5 mm gestational sac within uterus with yolk sac identified. - Repeat Transvaginal US today shows a single intrauterine gestational sac too small to accurately estimate gestational age - OB consulted Dr. Baez, spoke with on phone 1:40PM 07/18/18, ([phone]) recommends that pt follow up with OBGYN as out pt after discharge to determine if this is a viable/ nonviable Ppx - SCDs Pt seen, examined, assessment and plan discussed with Dr. Hellen Jones PGY1, Internal Medicine Resident <Hellen Pagan R - Last Filed: 07/21/18 14:19> Objective - Vital Signs/Intake and Output Vital Signs (last 24 hours): Temp Pulse Resp BP Pulse Ox 98.8 F 60 20 101/60 100 07/20/18 22:00 07/21/18 06:00 07/21/18 06:00 07/21/18 06:00 07/21/18 06:00 - Medications Medications: Current Medications Acetaminophen (Tylenol 325mg Tab) 650 mg PO Q6H PRN PRN Reason: Fever >100.4 F Last Admin: 07/17/18 16:33 Dose: 650 mg Acetaminophen (Tylenol 325mg Tab) 650 mg PO Q6H PRN PRN Reason: Pain, severe (8-10) Last Admin: 07/21/18 00:42 Dose: 650 mg Meropenem (Merrem Iv 1 Gm Premix) 1 gm in 50 mls @ 100 mls/hr IVPB Q8 CUONG; Protocol Stop: 07/25/18 11:25 Last Admin: 07/21/18 05:56 Dose: 100 mls/hr - Labs Labs: 07/19/18 07:00 07/19/18 07:00 PT 14.4 SECONDS (9.4-12.5) H 07/16/18 15:24 INR 1.26 07/16/18 15:24 APTT 23.7 Seconds (25.1-36.5) L 07/16/18 15:24 Attending/Attestation - Attestation I have personally seen and examined this patient.: Yes I have fully participated in the care of the patient.: Yes I have reviewed all pertinent clinical information, including history, physical exam and plan: Yes Notes (Text): Patient seen and examined by me with resident at 9:55AM on 07/19/18. Case including HPI, physical exam, and assessment and plan discussed with resident. Agree with above with following additions/corrections. Patient is a 32-year-old Moroccan-speaking female with past medical history significant for UTI and right-sided breast cancer status post radiation, harshal motherapy, and mastectomy that presented to the emergency room with left flank pain, fever, and dysuria. orchid grower [place] #[id number] used for translation. Patient states she is doing ok. Wants to go home. Discussed that she is growing a resistant bacteria in her urine and will require inpatient IV antibiotics. Patient understands. Patient denies CVA tenderness, No dysuria or burning with urination. Still with some increased urinary frequency. No headaches, dizziness, or lightheadedness. No change in vision. No chest pain or shortness of breath. No diarrhea or constipation. No nausea, vomiting, or abdominal pain. Physical exam: General: Awake and alert lying in bed in no acute distress HEENT: Normocephalic, atraumatic. Extraocular muscles intact, pupils equal and reactive, no scleral icterus. Oropharynx is pink and moist. No pharyngeal erythema or exudate appreciated. Neck is supple. Cardiovascular: Normal rhythm. Normal S1 and S2. No murmurs, rubs, or gallops appreciated Pulmonary: Normal respiratory effort. No rhonchi, rales, or wheezing appreciated Gastrointestinal: Soft, nondistended.Nontender. Positive bowel sounds all 4 quadrants. No guarding. Musculoskeletal: Moves all extremities. No calf tenderness. No edema appreciated. No CVA tenderness Central nervous system: AAOx 3, CN 2-12 grossly intact. Dermatologic: Skin warm and dry. Assessment and plan: Patient is a 32-year-old Moroccan-speaking female with past medical history significant for UTI and right-sided breast cancer status post radiation, chemotherapy, and mastectomy that presented to the emergency room with left flank pain, fever, and dysuria. 1. Sepsis secondary to Pyelonephritis. Afebrile. Leukocytosis resolved. Urine culture ESBL positive. Started on Merrem. Chlamydia, gonorrhea, HIV, RPR negative. Blood cultures with no growth. Resolved left CVA tenderness. ID following, recommendations appreciated. Renal ultrasound per radiologist showed unremarkable renal sonogram. 2. . Transvaginal ultrasound per radiologist showed 5 mm gestational sac within the uterus with yolk sac identified, measurements are currently out of range, findings may represent early normal/abnormal . Last menstrual period 06/16/2018. Beta HCG was 3143.70. Repeat level today 4131.4. Repeat tra nsvaginal ultrasound per radiologist showed single intrauterine gestational sac too small to accurately estimate gestational age; fibroid uterus the larger anterior wall intramural fibroid measures 1.8 x2.3 x1.8cm. Case was discussed at length with chemistry instructor Dr. Baez who stated that patient will need to follow up at the [place] [facility] after discharge from hospital to determine viability of . Dr. Baez also notified that patient has ESBL, no new recommendations. Importance of follow up discussed at length with patient. Patient understands. 3. Hypokalemia. Resolved. Continue to monitor. 4. History of breast cancer. S/P right breast mastectomy. No acute issues. 5. DVT prophylaxis. SCDs. Case was discussed with patient in detail regarding current diagnosis and treatment plan. All questions answered.
[2018-07-20] MEDS: Meropenem IV 1 gm in NS 1 GM/50 ML BAG IVPB SCH ×3 (05:54→21:45)
--- NOTE | 2018-07-20 10:27 | CP.PCM.PN ---
<J Carlos Miller - Last Filed: 07/20/18 10:20> Subjective - Date & Time of Evaluation Date of Evaluation: 07/20/18 Time of Evaluation: 08:00 - Subjective Subjective: Patient seen and examined at bedside. No complaints at this time. No acute events overnight. Denies chest pain, shortness of breath, nausea, vomiting, diarrhea, fever, chills. Objective - Vital Signs/Intake and Output Vital Signs (last 24 hours): Temp Pulse Resp BP Pulse Ox 98.7 F 76 18 106/68 98 07/20/18 06:00 07/20/18 06:00 07/20/18 06:00 07/20/18 06:00 07/20/18 06:00 Intake and Output: 07/20/18 07/20/18 06:59 18:59 Intake Total 360 Balance 360 - Medications Medications: Current Medications Acetaminophen (Tylenol 325mg Tab) 650 mg PO Q6H PRN PRN Reason: Fever >100.4 F Last Admin: 07/17/18 16:33 Dose: 650 mg Acetaminophen (Tylenol 325mg Tab) 650 mg PO Q6H PRN PRN Reason: Pain, severe (8-10) Last Admin: 07/18/18 11:13 Dose: 650 mg Meropenem (Merrem Iv 1 Gm Premix) 1 gm in 50 mls @ 100 mls/hr IVPB Q8 CUONG; Protocol Stop: 07/25/18 11:25 Last Admin: 07/20/18 05:54 Dose: 100 mls/hr - Labs Labs: 07/19/18 07:00 07/19/18 07:00 PT 14.4 SECONDS (9.4-12.5) H 07/16/18 15:24 INR 1.26 07/16/18 15:24 APTT 23.7 Seconds (25.1-36.5) L 07/16/18 15:24 - Constitutional Appears: Non-toxic, No Acute Distress - Head Exam Head Exam: ATRAUMATIC, NORMAL INSPECTION, NORMOCEPHALIC - ENT Exam ENT Exam: Mucous Membranes Moist - Respiratory Exam Respiratory Exam: Clear to Ausculation Bilateral, NORMAL BREATHING PATTERN - Cardiovascular Exam Cardiovascular Exam: RRR, +S1, +S2 - GI/Abdominal Exam GI & Abdominal Exam: Soft, Normal Bowel Sounds. absent: Tenderness - Extremities Exam Extremities Exam: Normal Inspection. absent: Pedal Edema - Neurological Exam Neurological Exam: Alert, Awake, CN II-XII Intact, Oriented x3 - Psychiatric Exam Psychiatric exam: Normal Affect, Normal Mood - Skin Skin Exam: Intact, Normal Color, Warm Assessment and Plan - Assessment and Plan (Free Text) Plan: 32 year old female with past medical history of breast cancer s/p right breast mastectomy presenting with ESBL pyelonephritis. Sepsis secondary to ESBL pyelonephritis Continue Merrem, day 4. 10 -14 days total Urine culture show ESBL E. coli Blood cultures negative HIV and RPR negative ID consulted Probable , duration unknown Transvaginal U/s: 5 mm gestational sac within uterus with yolk sac identified. Unable to identify gestational age Patient will follow up with OBGYN on discharge to determine viability of OBGYN consulted, Dr. Baez ([phone]) Prophylaxis SCDs No GI prophylaxis indicated [place], PGY-3 <Hellen Pagan R - Last Filed: 07/21/18 14:24> Objective - Vital Signs/Intake and Output Vital Signs (last 24 hours): Temp Pulse Resp BP Pulse Ox 98.8 F 60 20 101/60 100 07/20/18 22:00 07/21/18 06:00 07/21/18 06:00 07/21/18 06:00 07/21/18 06:00 - Labs Labs: 07/19/18 07:00 07/19/18 07:00 PT 14.4 SECONDS (9.4-12.5) H 07/16/18 15:24 INR 1.26 07/16/18 15:24 APTT 23.7 Seconds (25.1-36.5) L 07/16/18 15:24 Attending/Attestation - Attestation I have personally seen and examined this patient.: Yes I have fully participated in the care of the patient.: Yes I have reviewed all pertinent clinical information, including history, physical exam and plan: Yes Notes (Text): Patient seen and examined by me with resident at 10:15AM on 07/20/18. Case including HPI, physical exam, and assessment and plan discussed with resident. Agree with above with following additions/corrections. Patient is a 32-year-old Indian-speaking female with past medical history significant for UTI and right-sided breast cancer status post radiation, chemotherapy, and mastectomy that presented to the emergency room with left flank pain, fever, and dysuria. family support coordinator #[id number] used for translation. Patient states she feels ok. Discussed importance of following up with AIR FORCE SENIOR OFFICER with patient. Patient understands. No CVA tenderness. No dysuria or burning with urination. No increased urinary frequency. No headaches, dizziness, or lightheadedness. No change in vision. No chest pain or shortness of breath. No diarrhea or constipation. No nausea, vomiting, or abdominal pain. Physical exam: General: Awake and alert lying in bed in no acute distress HEENT: Normocephalic, atraumatic. Extraocular muscles intact, pupils equal and reactive, no scleral icterus. Oropharynx is pink and moist. No pharyngeal erythema or exudate appreciated. Neck is supple. Cardiovascular: Normal rhythm. Normal S1 and S2. No murmurs, rubs, or gallops appreciated Pulmonary: Normal respiratory effort. No rhonchi, rales, or wheezing appreciated Gastrointestinal: Soft, nondistended.Nontender. Positive bowel sounds all 4 quadrants. No guarding. Musculoskeletal: Moves all extremities. No calf tenderness. No edema appreciated. No CVA tenderness Central nervous system: AAOx 3, CN 2-12 grossly intact. Dermatologic: Skin warm and dry. Assessment and plan: Patient is a 32-year-old Indian-speaking female with past medical history significant for UTI and right-sided breast cancer status post radiation, chemotherapy, and mastectomy that presented to the emergency room with left flank pain, fever, and dysuria. 1. Sepsis secondary to Pyelonephritis. Sepsis resolved. Afebrile. Leukocytosis resolved. Urine culture ESBL positive. Continue Merrem. Chlamydia, gonorrhea, HIV, RPR negative. Blood cultures with no growth. Resolved left CVA tenderness. ID following, recommendations appreciated. Renal ultrasound per radiologist showed unremarkable renal sonogram. 2. . Transvaginal ultrasound per radiologist showed 5 mm gestational sac within the uterus with yolk sac identified, measurements are currently out of range, findings may represent early normal/abnormal . Last menstrual period 06/16/2018. Beta HCG was 3143.70. Repeat HCG 4131.4. Repeat transvaginal ultrasound per radiologist showed single intrauterine gestational sac too small to accurately estimate gestational age; fibroid uterus the larger anterior wall intramural fibroid measures 1.8 x2.3 x1.8cm. Case was discussed at length with medical practice manager Dr. Baez who stated that patient will need to follow up at the [place] [facility] after discharge from hospital to determine viability of . Dr. Baez also notified that patient has ESBL, no new recommendations. Importance of follow up discussed at length with patient. Patient understands. 3. Hypokalemia. Resolved. Continue to monitor. 4. History of breast cancer. S/P right breast mastectomy. No acute issues. 5. DVT prophylaxis. SCDs. Case was discussed with patient in detail regarding current diagnosis and treatment plan. All questions answered.
[2018-07-20 15:21] VITALS: O2SAT 100
[2018-07-20 22:15] VITALS: RESP 20; TEMP 98.8
--- NOTE | 2018-07-20 23:33 | PN ---
DATE: 07/20/2018 SUBJECTIVE: The patient is seen earlier today. Feeling better. Much improved. PHYSICAL EXAMINATION: VITAL SIGNS: Temperature is 98, blood pressure is 106/60, respiratory rate of 18. HEENT: Unremarkable. NECK: Supple. LUNGS: Decreased breath sounds. HEART: Normal S1 and S2. ABDOMEN: Soft, nontender. LABORATORY DATA: Reveals the patient's white count is 6.4, hemoglobin of 11, platelets of 263. Coagulations noted. Chemistry reveals BUN of 10, creatinine of 0.5. Microbiology reveals the patient has Escherichia coli in the urine is ESBL Escherichia coli. Blood cultures are negative. Review of orders: Reveals the patient to be on meropenem. ASSESSMENT AND PLAN: A 32-year-old female with sepsis, Escherichia coli, left pyelonephritis, , breast cancer status post chemo and radiation by history. The patient has been afebrile now since the . Last temperature was on July 17. The patient had a temperature of 101.4. Unfortunately, no p.o. medications available for left pyelonephritis. Today is day #3 of 10 to 14 days of meropenem. We will follow with you. Kaden Aguilar MD
[2018-07-21] MEDS: Meropenem IV 1 gm in NS 1 GM/50 ML BAG IVPB SCH (05:56)
[2018-07-21 10:08] VITALS: BP 101/60; PULSE 60
--- NOTE | 2018-07-21 15:21 | CP.PCM.DIS ---
<David Jones - Last Filed: 07/21/18 15:11> Provider - Provider Date of Admission: 07/16/18 16:48 Attending physician: Hellen Pagan DO Consults: 07/16/18 17:21 Consult [Physician Consult] Stat Comment: Consulting Provider: Diana Baez Consulting Physician: Diana Baez Reason for Consult: Pyelonephritis, pt Infectious Disease Consult Stat Comment: Consulting Provider: Stephen Coy Consulting Physician: Stephen Coy Reason for Consult: Pyelonephritis, pt Time Spent in preparation of Discharge (in minutes): 40 Diagnosis - Discharge Diagnosis (1) Status: Acute Priority: High (2) Pyelonephritis Status: Acute Priority: High (3) ESBL (extended spectrum beta-lactamase) producing bacteria infection Status: Acute Priority: High (4) ESBL (extended spectrum beta-lactamase) producing bacteria infection Status: Acute Priority: High Hospital Course - Lab Results Lab Results: Micro Results 07/16/18 21:30 Blood Blood Culture - Preliminary NO GROWTH AFTER 4 DAYS 07/16/18 21:00 Blood Blood Culture - Preliminary NO GROWTH AFTER 4 DAYS 07/16/18 14:47 Urine Urine Culture - Final Escherichia Coli Most Recent Lab Values WBC 6.4 10^3/uL (4.5-11.0) D 07/19/18 07:00 RBC 3.98 10^6/uL (3.5-6.1) 07/19/18 07:00 Hgb 11.2 g/dL (12.0-16.0) L 07/19/18 07:00 Hct 33.7 % (36.0-48.0) L 07/19/18 07:00 MCV 84.7 fl (80.0-105.0) 07/19/18 07:00 MCH 28.1 pg (25.0-35.0) 07/19/18 07:00 MCHC 33.2 g/dl (31.0-37.0) 07/19/18 07:00 RDW 12.7 % (11.5-14.5) 07/19/18 07:00 Plt Count 263 10^3/uL (120.0-450.0) 07/19/18 07:00 MPV 9.3 fl (7.0-11.0) 07/19/18 07:00 Gran % 60.9 % (50.0-68.0) 07/19/18 07:00 Lymph % (Auto) 24.0 % (22.0-35.0) 07/19/18 07:00 [place] % (Auto) 10.9 % (1.0-6.0) H 07/19/18 07:00 Eos % (Auto) 3.7 % (1.5-5.0) 07/19/18 07:00 Baso % (Auto) 0.5 % (0.0-3.0) 07/19/18 07:00 Gran # 3.92 (1.4-6.5) 07/19/18 07:00 Lymph # (Auto) 1.5 (1.2-3.4) 07/19/18 07:00 [place] # (Auto) 0.7 (0.1-0.6) H 07/19/18 07:00 Eos # (Auto) 0.2 (0.0-0.7) 07/19/18 07:00 Baso # (Auto) 0.03 K/mm3 (0.0-2.0) 07/19/18 07:00 PT 14.4 SECONDS (9.4-12.5) H 07/16/18 15:24 INR 1.26 07/16/18 15:24 APTT 23.7 Seconds (25.1-36.5) L 07/16/18 15:24 pO2 60 mm/Hg (30-55) H 07/17/18 02:15 VBG pH 7.42 (7.32-7.43) 07/17/18 02:15 VBG pCO2 34.0 (40-60) L 07/17/18 02:15 VBG HCO3 22.1 mmol/l (21-28) 07/17/18 02:15 VBG Total CO2 23.1 mmol.L (22-28) 07/17/18 02:15 VBG O2 Sat (Calc) 94.0 % (40-65) H 07/17/18 02:15 VBG Base Excess -1.7 mmol/L (0.0-2.0) L 07/17/18 02:15 VBG Potassium 3.6 mmol/L (3.6-5.2) 07/17/18 02:15 Sodium 135.0 mmol/L (132-148) 07/17/18 02:15 Chloride 106.0 mmol/L (98-107) 07/17/18 02:15 Glucose 95 mg/dl (65-105) 07/17/18 02:15 Lactate 0.6 mmol/L (0.7-2.1) L 07/17/18 02:15 FiO2 21.0 % 07/17/18 02:15 Sodium 141 mmol/L (132-148) 07/19/18 07:00 Potassium 3.8 mmol/L (3.6-5.0) 07/19/18 07:00 Chloride 107 mmol/L (98-107) 07/19/18 07:00 Carbon Dioxide 25 mmol/L (21-33) 07/19/18 07:00 Anion Gap 12 (10-20) 07/19/18 07:00 BUN 10 mg/dL (7-21) 07/19/18 07:00 Creatinine 0.5 mg/dl (0.7-1.2) L 07/19/18 07:00 Est GFR ( Amer) > 60 07/19/18 07:00 Est GFR (Non-Af Amer) > 60 07/19/18 07:00 Random Glucose 93 mg/dL (70-110) 07/19/18 07:00 Calcium 9.1 mg/dL (8.4-10.5) 07/19/18 07:00 Total Bilirubin 0.3 mg/dL (0.2-1.3) 07/19/18 07:00 AST 34 U/L (14-36) 07/19/18 07:00 ALT 37 U/L (7-56) 07/19/18 07:00 Alkaline Phosphatase 83 U/L (38-126) 07/19/18 07:00 Total Protein 7.5 g/dL (5.8-8.3) 07/19/18 07:00 Albumin 4.0 g/dL (3.0-4.8) 07/19/18 07:00 Globulin 3.6 gm/dL 07/19/18 07:00 Albumin/Globulin Ratio 1.1 (1.1-1.8) 07/19/18 07:00 Beta HCG, Quant 4131.40 mIU/mL (0-6.15) H 07/18/18 06:45 Venous Blood Potassium 3.6 mmol/L (3.6-5.2) 07/17/18 02:15 Urine Color Yellow (YELLOW) 07/16/18 14:47 Urine Appearance Cloudy (CLEAR) 07/16/18 14:47 Urine pH 6.0 (4.7-8.0) 07/16/18 14:47 Ur Specific [place] 1.025 (1.005-1.035) 07/16/18 14:47 Urine Protein 30 mg/dL (<30 mg/dL) H 07/16/18 14:47 Urine Glucose (UA) Negative mg/dL (NEGATIVE) 07/16/18 14:47 Urine Ketones >=80 mg/dL (NEGATIVE) 07/16/18 14:47 Urine Blood Moderate (NEGATIVE) H 07/16/18 14:47 Urine Nitrate Positive (NEGATIVE) H 07/16/18 14:47 Urine Bilirubin Negative (NEGATIVE) 07/16/18 14:47 Urine Urobilinogen 0.2 E.U./dL (<1 E.U./dL) 07/16/18 14:47 Ur Leukocyte Esterase [place]/uL (NEGATIVE) H 07/16/18 14:47 Urine RBC 1 - 3 /hpf (0-2) H 07/16/18 14:47 Urine WBC 10 - 15 /hpf (0-6) H 07/16/18 14:47 Ur Epithelial Cells 3 - 4 /hpf (0-5) 07/16/18 14:47 Urine Bacteria Many /hpf (NONE) 07/16/18 14:47 RPR Nonreactive (NONREACTIVE) 07/17/18 06:50 T.pallidum Ab (FTA-ABS) Nonreactive (Nonreactive) 07/17/18 06:50 C.trachomatis RNA (TMA) Not detected (Not Detected) 07/19/18 14:30 HIV 1&2 Ag/Ab, 4th Gen Nonreactive (Nonreactive) 07/17/18 06:50 Influenza Typ A,B (EIA) Negative for flu a/b (NEGATIVE) 07/16/18 14:45 N.gonorrhoeae RNA (TMA) Not detected (Not Detected) 07/19/18 14:30 - Hospital Course Hospital Course: Upon Arrival Pt is a 32 y o female with PMH breast ca s/p mastectomy of R breast, chemo and XRT, who presented to the ED complaining of L-sided flank pain, burning with urination, and suprapubic pain x 2 days. Stated she started having these symptoms along with associated fever/chills and generalized body aches. Denied any vaginal bleeding or discharge. Reported increased frequency with urination. States she has had UTIs in the past but not within the past year. Reports LMP was 06/16/18. Denies chest pain, sob, n/v/d/c, or other symptoms. During Admission Pt pyelonephritis was treated with rocephin during her admission. Pt was also found to be , OBGYN was also consulted, Dr Baez. A renal US was performed, which was negative. ID was consulted, Dr Coy. A 5mm gestational sac within the uterus was identified by transvaginal US. Urine cultures grew ESBL e coli, she was treated with meropenem. A repeat transvaginal US confirmed the intra uterine . A repeat Beta HCG 48 hours after the initial did not double in value. Discharge Pt decided to leave AMA. The risks were explained to her which included but were not limited to: loss/complications with her , loss of life of limb, possibility of MT or stroke as well as continued care, treatment and testing. - Date & Time of H&P Date of H&P: 07/21/18 Time of H&P: 09:00 Discharge Exam - Head Exam Head Exam: ATRAUMATIC, NORMAL INSPECTION, NORMOCEPHALIC - Eye Exam Eye Exam: EOMI - ENT Exam ENT Exam: Mucous Membranes Moist - Respiratory Exam Respiratory Exam: NORMAL BREATHING PATTERN, UNREMARKABLE. absent: Respiratory Distress - Cardiovascular Exam Cardiovascular Exam: RRR, +S1, +S2. absent: Diastolic murmur, Systolic Murmur - GI/Abdominal Exam GI & Abdominal Exam: Normal Bowel Sounds, Soft - Extremities Exam Extremities exam: full ROM - Neurological Exam Neurological exam: Alert, Oriented x3 - Psychiatric Exam Psychiatric exam: Normal Affect, Normal Mood - Skin Skin Exam: Dry, Intact, Warm Discharge Plan - Follow Up Plan Condition: STABLE Disposition: AGAINST MEDICAL ADVICE Instructions: Urinary Tract Infection in Women (DC), Urinary Tract Infection in Men (DC), Dysuria (GEN) Additional Instructions: Please You have an OBGYN appointment set-up for 07/24/2018 at 10:40AM (please arrive 30 minutes early at 10:10AM) at [facility] at [address] [place] [address]. However, before you go you MUST apply for [facility] by calling [phone]. If you do not attain [facility] prior to your appointment the doctor can not see you. <Farhat Griffith - Last Filed: 07/21/18 15:49> Provider - Provider Date of Admission: 07/16/18 16:48 Attending physician: Hellen Pagan, Consults: 07/16/18 17:21 Consult [Physician Consult] Stat Comment: Consulting Provider: Diana Baez Consulting Physician: Diana Baez Reason for Consult: Pyelonephritis, pt Infectious Disease Consult Stat Comment: Consulting Provider: Stephen Coy Consulting Physician: Stephen Coy Reason for Consult: Pyelonephritis, pt Hospital Course - Lab Results Lab Results: Micro Results 07/16/18 21:30 Blood Blood Culture - Preliminary NO GROWTH AFTER 4 DAYS 07/16/18 21:00 Blood Blood Culture - Preliminary NO GROWTH AFTER 4 DAYS 07/16/18 14:47 Urine Urine Culture - Final Escherichia Coli Most Recent Lab Values WBC 6.4 10^3/uL (4.5-11.0) D 07/19/18 07:00 RBC 3.98 10^6/uL (3.5-6.1) 07/19/18 07:00 Hgb 11.2 g/dL (12.0-16.0) L 07/19/18 07:00 Hct 33.7 % (36.0-48.0) L 07/19/18 07:00 MCV 84.7 fl (80.0-105.0) 07/19/18 07:00 MCH 28.1 pg (25.0-35.0) 07/19/18 07:00 MCHC 33.2 g/dl (31.0-37.0) 07/19/18 07:00 RDW 12.7 % (11.5-14.5) 07/19/18 07:00 Plt Count 263 10^3/uL (120.0-450.0) 07/19/18 07:00 MPV 9.3 fl (7.0-11.0) 07/19/18 07:00 Gran % 60.9 % (50.0-68.0) 07/19/18 07:00 Lymph % (Auto) 24.0 % (22.0-35.0) 07/19/18 07:00 [place] % (Auto) 10.9 % (1.0-6.0) H 07/19/18 07:00 Eos % (Auto) 3.7 % (1.5-5.0) 07/19/18 07:00 Baso % (Auto) 0.5 % (0.0-3.0) 07/19/18 07:00 Gran # 3.92 (1.4-6.5) 07/19/18 07:00 Lymph # (Auto) 1.5 (1.2-3.4) 07/19/18 07:00 [place] # (Auto) 0.7 (0.1-0.6) H 07/19/18 07:00 Eos # (Auto) 0.2 (0.0-0.7) 07/19/18 07:00 Baso # (Auto) 0.03 K/mm3 (0.0-2.0) 07/19/18 07:00 PT 14.4 SECONDS (9.4-12.5) H 07/16/18 15:24 INR 1.26 07/16/18 15:24 APTT 23.7 Seconds (25.1-36.5) L 07/16/18 15:24 pO2 60 mm/Hg (30-55) H 07/17/18 02:15 VBG pH 7.42 (7.32-7.43) 07/17/18 02:15 VBG pCO2 34.0 (40-60) L 07/17/18 02:15 VBG HCO3 22.1 mmol/l (21-28) 07/17/18 02:15 VBG Total CO2 23.1 mmol.L (22-28) 07/17/18 02:15 VBG O2 Sat (Calc) 94.0 % (40-65) H 07/17/18 02:15 VBG Base Excess -1.7 mmol/L (0.0-2.0) L 07/17/18 02:15 VBG Potassium 3.6 mmol/L (3.6-5.2) 07/17/18 02:15 Sodium 135.0 mmol/L (132-148) 07/17/18 02:15 Chloride 106.0 mmol/L (98-107) 07/17/18 02:15 Glucose 95 mg/dl (65-105) 07/17/18 02:15 Lactate 0.6 mmol/L (0.7-2.1) L 07/17/18 02:15 FiO2 21.0 % 07/17/18 02:15 Sodium 141 mmol/L (132-148) 07/19/18 07:00 Potassium 3.8 mmol/L (3.6-5.0) 07/19/18 07:00 Chloride 107 mmol/L (98-107) 07/19/18 07:00 Carbon Dioxide 25 mmol/L (21-33) 07/19/18 07:00 Anion Gap 12 (10-20) 07/19/18 07:00 BUN 10 mg/dL (7-21) 07/19/18 07:00 Creatinine 0.5 mg/dl (0.7-1.2) L 07/19/18 07:00 Est GFR ( Amer) > 60 07/19/18 07:00 Est GFR (Non-Af Amer) > 60 07/19/18 07:00 Random Glucose 93 mg/dL (70-110) 07/19/18 07:00 Calcium 9.1 mg/dL (8.4-10.5) 07/19/18 07:00 Total Bilirubin 0.3 mg/dL (0.2-1.3) 07/19/18 07:00 AST 34 U/L (14-36) 07/19/18 07:00 ALT 37 U/L (7-56) 07/19/18 07:00 Alkaline Phosphatase 83 U/L (38-126) 07/19/18 07:00 Total Protein 7.5 g/dL (5.8-8.3) 07/19/18 07:00 Albumin 4.0 g/dL (3.0-4.8) 07/19/18 07:00 Globulin 3.6 gm/dL 07/19/18 07:00 Albumin/Globulin Ratio 1.1 (1.1-1.8) 07/19/18 07:00 Beta HCG, Quant 4131.40 mIU/mL (0-6.15) H 07/18/18 06:45 Venous Blood Potassium 3.6 mmol/L (3.6-5.2) 07/17/18 02:15 Urine Color Yellow (YELLOW) 07/16/18 14:47 Urine Appearance Cloudy (CLEAR) 07/16/18 14:47 Urine pH 6.0 (4.7-8.0) 07/16/18 14:47 Ur Specific [place] 1.025 (1.005-1.035) 07/16/18 14:47 Urine Protein 30 mg/dL (<30 mg/dL) H 07/16/18 14:47 Urine Glucose (UA) Negative mg/dL (NEGATIVE) 07/16/18 14:47 Urine Ketones >=80 mg/dL (NEGATIVE) 07/16/18 14:47 Urine Blood Moderate (NEGATIVE) H 07/16/18 14:47 Urine Nitrate Positive (NEGATIVE) H 07/16/18 14:47 Urine Bilirubin Negative (NEGATIVE) 07/16/18 14:47 Urine Urobilinogen 0.2 E.U./dL (<1 E.U./dL) 07/16/18 14:47 Ur Leukocyte Esterase [place]/uL (NEGATIVE) H 07/16/18 14:47 Urine RBC 1 - 3 /hpf (0-2) H 07/16/18 14:47 Urine WBC 10 - 15 /hpf (0-6) H 07/16/18 14:47 Ur Epithelial Cells 3 - 4 /hpf (0-5) 07/16/18 14:47 Urine Bacteria Many /hpf (NONE) 07/16/18 14:47 RPR Nonreactive (NONREACTIVE) 07/17/18 06:50 T.pallidum Ab (FTA-ABS) Nonreactive (Nonreactive) 07/17/18 06:50 C.trachomatis RNA (TMA) Not detected (Not Detected) 07/19/18 14:30 HIV 1&2 Ag/Ab, 4th Gen Nonreactive (Nonreactive) 07/17/18 06:50 Influenza Typ A,B (EIA) Negative for flu a/b (NEGATIVE) 07/16/18 14:45 N.gonorrhoeae RNA (TMA) Not detected (Not Detected) 07/19/18 14:30 Attending/Attestation - Attestation I have personally seen and examined this patient.: Yes I have fully participated in the care of the patient.: Yes I have reviewed all pertinent clinical information, including history, physical exam and plan: Yes Notes (Text): 07/21/18 15:42 Attending note; Patient seen and examined with resident in the morning. Patient is alert and awake. Denies any abdominal pain, nausea, vomiting. Denies any fevers, chills. Denies any urinary symptoms. Denies any vaginal bleeding. Patient is a 32 year old female with PMH breast ca s/p mastectomy of R breast, chemo and XRT, who presented to the ED complaining of L-sided flank pain, burning with urination, and suprapubic pain x 2 days. Stated she started having these symptoms along with associated fever/chills and generalized body aches. Denied any vaginal bleeding or discharge. 1. ESBL UTI; patient is currently on IV meropenem. ID evaluation appreciated. Patient is currently afebrile. 2. Positive beta-hCG; transvaginal ultrasound showed single intrauterine gestational sac to small to estimate the gestational age. Patient is strongly advised to follow-up with [facility] as outpatient. Addendum; Patient signed AGAINST MEDICAL ADVICE. Prognosis explained to the patient in detail by the resident.
--- NOTE | 2018-07-22 04:24 | PN ---
DATE: 07/21/2018 SUBJECTIVE: Patient is seen earlier this morning. She is asking to go home. She wants to be discharged. PHYSICAL EXAMINATION: VITAL SIGNS: Temperature is 98, blood pressure 118/70, respiratory rate 16. HEENT: Unremarkable. NECK: Supple. LUNGS: Decreased breath sounds. HEART: Normal S1 and S2. ABDOMEN: Soft. LABORATORY DATA: Reveals patient's labs are reviewed. ASSESSMENT AND PLAN: This is a 32-year-old female who was admitted with sepsis with extended spectrum beta-lactamase Escherichia coli, left pyelonephritis, , history of breast cancer, status post chemotherapy and radiation. No p.o. options available. I have explained that to her this morning. Today is day #4 of 10 to 14 days. Kaden Aguilar MD
== END 2018-07-21 14:20 | disposition left against medical advice (07) | DRG 720 ==
LOC: ED 13:48 → ERH 16:48 → 5RSO 18:28
PROVIDERS: ADMIT Hospitalist; ATTEND Hospitalist
DX: A41.9 Sepsis, unspecified organism (principal); N12 Tubulo-interstitial nephritis, not specified as acute or chronic; B96.20 Unspecified Escherichia coli [E. coli] as the cause of diseases classified elsewhere; Z16.12 Extended spectrum beta lactamase (ESBL) resistance; E87.6 Hypokalemia; D25.1 Intramural leiomyoma of uterus; Z33.1 Pregnant state, incidental; Z16.24 Resistance to multiple antibiotics; Z79.810 Long term (current) use of selective estrogen receptor modulators (SERMs); Z85.3 Personal history of malignant neoplasm of breast; Z90.11 Acquired absence of right breast and nipple; Z92.3 Personal history of irradiation; Z92.21 Personal history of antineoplastic chemotherapy

== ENCOUNTER 2018-11-11 23:14 | Emergency (ER) | payer OTHER ==
[2018-11-11 23:15] VITALS: BMI 25.0
--- NOTE | 2018-11-12 00:33 | ED PDOC ---
Arrival/HPI - General Chief Complaint: Cough, Cold, Congestion Time Seen by Provider: 11/11/18 23:49 Historian: Patient - History of Present Illness Narrative History of Present Illness (Text): Kole Yanes is a 32 year old female, whose past medical history includes breast ca s/p mastectomy (no current tamoxifen), 21 weeks , presenting to the emergency department with cough and nasal congestion for 1 week. Non-prod uctive cough, with increased clear nasal secretions. No fall or trauma or headache. No ear pain. Patient denies any chest pain, tightness, chest congestion, or shortness of breath. Patient denies any fevers, chills, nausea, vomiting, urinary symptoms, neck stiffness, or any other complaints. Time/Duration: Prior to Arrival Symptom Onset: Gradual Symptom Course: Unchanged Activities at Onset: Light Context: Home Past Medical History - Provider Review Nursing Documentation Reviewed: Yes - Infectious Disease Hx of Infectious Diseases: None - Cardiac Hx Cardiac Disorders: No - Pulmonary Hx Respiratory Disorders: No - Neurological Hx Neurological Disorder: No - HEENT Hx HEENT Disorder: No - Renal Hx Renal Disorder: No - Endocrine/Metabolic Hx Endocrine Disorders: No - Hematological/Oncological Hx Blood Disorders: Yes Hx Cancer: Yes (breast ca - on tamoxifen) Hx Chemotherapy: Yes - Integumentary Hx Dermatological Disorder: No - Musculoskeletal/Rheumatological Hx Musculoskeletal Disorders: No Hx Falls: No - Gastrointestinal Hx Gastrointestinal Disorders: No - Genitourinary/Gynecological Hx Genitourinary Disorders: Yes (BREAST CA -RIGHT MASTECTOMY 2010,ON CHEMO- TOMOXIFEN IN ) Hx Urinary Tract Infection: Yes - Psychiatric Hx Psychophysiologic Disorder: No Hx Substance Use: No - Surgical History Hx Mastectomy: Yes (right breast 2010) - Anesthesia Hx Anesthesia: Yes Hx Anesthesia Reactions: No Hx Malignant Hyperthermia: No Family/Social History - Physician Review Nursing Documentation Reviewed: Yes Family/Social History: No Known Family HX Smoking Status: Never Smoked Hx Alcohol Use: No Hx Substance Use: No Allergies/Home Meds Allergies/Adverse Reactions: Allergies No Known Allergies Allergy (Verified 07/16/18 17:42) Home Medications: Home Meds Medication Instructions Recorded Confirmed Tamoxifen Citrate 1 tab PO DAILY 03/05/18 07/16/18 Review of Systems - Physician Review All systems were reviewed & negative as marked: Yes - Review of Systems Constitutional: absent: Fatigue, Weight Change, Fevers, Night Sweats Eyes: absent: Vision Changes, Photophobia ENT: Sinus Congestion Respiratory: Cough. absent: SOB, Sputum, Wheezing Cardiovascular: absent: Chest Pain Gastrointestinal: absent: Abdominal Pain, Stool Changes, Constipation, Nausea, Vomiting, Appetite Changes, Hematochezia Genitourinary Female: absent: Dysuria, Frequency, Hematuria, Urine Output Changes Musculoskeletal: absent: Arthralgias, Back Pain, Neck Pain Skin: absent: Rash, Pruritis, Skin Lesions, Laceration, Abscess Neurological: absent: Headache, Dizziness Endocrine: absent: Diaphoresis Psychiatric: absent: Anxiety, Depression Physical Exam Vital Signs Reviewed: Yes Vital Signs Temp Pulse Resp BP Pulse Ox 11/12/18 00:03 99 F 93 H 18 112/71 96 Temperature: Afebrile Blood Pressure: Normal Pulse: Regular Respiratory Rate: Normal Appearance: Positive for: Well-Appearing, Non-Toxic, Comfortable Pain Distress: None Mental Status: Positive for: Alert and Oriented X 3 - Systems Exam Head: Present: Atraumatic, Normocephalic Pupils: Present: PERRL Extroacular Muscles: Present: EOMI Conjunctiva: Present: Normal Ears: Present: Normal Mouth: Present: Moist Mucous Membranes Pharnyx: Present: Other (cobblestoning to back of throat). No: ERYTHEMA, EXUDATE, TONSILS ENLARGED, Peritonsilar Swelling, Uvular Deviation, Muffled/Hoarse Voice, Strider Nose (External): Present: Atraumatic Nose (Internal): Present: Rhinorrhea. No: Purulent Mucous Neck: Present: Normal Range of Motion. No: Meningeal Signs, MIDLINE TENDERNESS Respiratory/Chest: Present: Clear to Auscultation, Good Air Exchange. No: Respiratory Distress, Accessory Muscle Use Cardiovascular: Present: Regular Rate and Rhythm, Normal S1, S2. No: Murmurs Abdomen: Present: Normal Bowel Sounds. No: Tenderness, Distention, Peritoneal Signs Back: Present: Normal Inspection. No: CVA Tenderness, Midline Tenderness Upper Extremity: Present: Normal Inspection. No: Cyanosis, Edema Lower Extremity: Present: Normal Inspection. No: Edema Neurological: Present: GCS=15, CN II-XII Intact, Speech Normal Skin: Present: Warm, Dry, Normal Color. No: Rashes Psychiatric: Present: Alert, Oriented x 3, Normal Insight, Normal Concentration Medical Decision Making ED Course and Treatment: 11/12/18 00:36 Impression: 32 year old female presents with cough and congestion. Nonproductive cough, non staccato like, not associated with vomiting. Nasal congestion without any chest pain, chest congestion or shortness of breath. No fever, chills or night sweats. No urinary complaints. Tolerating clears and solids well at home. No dysphonia, dysphagia or odynophagia. No meningeal signs. No rash or headache. Differential Diagnosis included but are not limited to: viral URI vs bronchitis Plan: -- Rapid strep -- Reassess and disposition Prior Visits: Notes and results from previous visits were reviewed. Progress Notes: 11/12/18 01:37 strep negative Likely bronchitis vs viral URI pt in nad, lungs remain cta b/l clear for d/c home w/ script, return indications and f/u. Pt agreeable to plan - Scribe Statement The provider has reviewed the documentation as recorded by the Scribe Kian Short Provider Scribe Attestation: All medical record entries made by the Scribe were at my direction and personally dictated by me. I have reviewed the chart and agree that the record accurately reflects my personal performance of the history, physical exam, medical decision making, and the department course for this patient. I have also personally directed, reviewed, and agree with the discharge instructions and disposition. Disposition/Present on Arrival - Present on Arrival Any Indicators Present on Arrival: No History of DVT/PE: No History of Uncontrolled Diabetes: No Urinary Catheter: No History of Decub. Ulcer: No History Surgical Site Infection Following: None - Disposition Have Diagnosis and Disposition been Completed?: Yes Diagnosis: Cough, Bronchitis Disposition: HOME/ ROUTINE Disposition Time: 01:32 Condition: STABLE Discharge Instructions (ExitCare): Cough in Adults, Acute Bronchitis, Adult (DC) Additional Instructions: DURGA YANES, thank you for letting us take care of you today. Your provider was Remington Byers and you were treated for coughing / chest congestion. The emergency medical care you received today was directed at your acute symptoms. If you were prescribed any medication, please fill it and take as directed. It may take several days for your symptoms to resolve. Return to the Emergency Department if your symptoms worsen, do not improve, or if you have any other problems. Please contact your doctor or call one of the physicians/clinics you have been referred to that are listed on the Patient Visit Information form that is included in your discharge packet. Bring any paperwork you were given at discharge with you along with any medications you are taking to your follow up visit. Our treatment cannot replace ongoing medical care by a primary care provider outside of the emergency department. Thank you for allowing the [facility] team to be part of your care today. If you had an X-Ray or CT scan: A Radiologist will review the ED reading if any change in treatment is needed we will contact you. If you had a blood, urine, or wound culture: It will take several days for the results, if any change in treatment is needed we will contact you. If you had an STI test: It will take 48 hours for the results. Please call after 1 week if you have not heard back. Prescriptions: Azithromycin [Z-Luis Alberto] 250 mg PO DAILY #6 tab Referrals: [email or web address] [Outside] - Follow up with primary [facility] [Outside] - Follow up with primary [facility] [place] [facility] [place] - Follow up with primary Marquita Larkin MD [Medical Doctor] - Follow up with primary Forms: [email or web address] (Filipino)
[2018-11-12 02:30] VITALS: BP 116/78; PULSE 70; RESP 14; TEMP 98.4; O2SAT 100
== END 2018-11-12 01:40 | disposition home or self-care (01) ==
LOC: ED 23:14
DX: J40 Bronchitis, not specified as acute or chronic (principal); O99.512 Diseases of the respiratory system complicating pregnancy, second trimester; Z3A.21 21 weeks gestation of pregnancy